=== PATIENT | female | born 1950 | race Hispanic/Latino ===

== ENCOUNTER 2017-01-03 11:07 | Inpatient (IN) | payer MEDICARE, MEDICAID ==
[2017-01-03 11:08] VITALS: BMI 23.4
[2017-01-03 11:50] LABS: BASO # 0.01 K/mm3 (0.0-2.0); BASO % 0.2 % (0.0-3.0); EOS # 0.1 (0.0-0.7); EOS % 1.3 % (1.5-5.0); GRAN # 3.81 (1.4-6.5); GRAN % 64.2 % (50.0-68.0); HEMATOCRIT 31.2 % (36.0-48.0); LYMPH # 1.5 (1.2-3.4); LYMPH % 24.9 % (22.0-35.0); MEAN CELL VOLUME 89.1 fl (80.0-105.0); MEAN CORPUSCULAR HEMOGLOBIN 29.4 pg (25.0-35.0); MEAN PLATELET VOLUME 8.8 fl (7.0-11.0); MONO # 0.6 (0.1-0.6); MONO % 9.4 % (1.0-6.0); RED CELL DISTRIBUTION WIDTH 13.5 % (11.5-14.5); WHITE BLOOD COUNT 5.9 10^3/ul (4.5-11.0)
[2017-01-03 12:01] LABS: ALB/GLOB RATIO 1.4 (1.1-1.8); ALKALINE PHOSPHATASE 80 U/L (38-126); ALT/SGPT 32 U/L (7-56); AST/SGOT 35 U/L (14-36); BILIRUBIN,TOTAL 0.5 mg/dL (0.2-1.3); BLOOD UREA NITROGEN 14 mg/dL (7-21); CALCIUM 9.5 mg/dL (8.4-10.5); CARBON DIOXIDE 25 mmol/L (21-33); CHLORIDE 103 mmol/L (98-107); GFR AFRICAN-AMERICAN > 60; GLUCOSE,RANDOM 95 mg/dL (70-110); POTASSIUM 4.2 mmol/L (3.6-5.0); SODIUM 139 mmol/L (132-148); TOTAL PROTEIN 7.4 g/dL (5.8-8.3)
--- NOTE | 2017-01-03 12:01 | ED PDOC ---
Arrival/HPI - General Chief Complaint: Trauma Time Seen by Provider: 01/03/17 11:18 Historian: Patient, EMS - History of Present Illness Narrative History of Present Illness (Text): The patient is a 66yo female, brought to the ED by EMS for evaluation of multiple episodes of falls. Pt reports she as been feeling generalized malaise for the past 3 weeks and has felt dizziness intermittently, which she describes as room spinning. The patient states she "cant keep balance" and has been "running into trees" and tripping. She states she has been evaluated for similar symptoms in the past and was given "dizzy pills". She additionally states she is unsure who called the ambulance for her. She offers no other complaints. According to EMS, the patient was at the outpatient [facility] in [place] saying she had some tests scheduled but she was not in their system. She was noticed to have unsteady gait and fall outside their facility so EMS brought her to [facility] saying she was with bizarre behavior. Symptom Onset: Gradual Symptom Course: Unchanged Past Medical History - Provider Review Nursing Documentation Reviewed: Yes - Travel History Have you recently traveled outside [place] w/in the past 3 mons?: No - Infectious Disease Hx of Infectious Diseases: None - Tetanus Immunization Tetanus Immunization: Unknown - Cardiac Hx Cardiac Disorders: No Hx Pacemaker: No - Pulmonary Hx Respiratory Disorders: No - Neurological Hx Neurological Disorder: No Hx Paralysis: No - HEENT Hx HEENT Disorder: No - Renal Hx Renal Disorder: No - Endocrine/Metabolic Hx Endocrine Disorders: No - Hematological/Oncological Hx Blood Transfusions: No - Integumentary Hx Dermatological Disorder: No Hx Basal Cell Carcinoma: No Hx Eczema: No Hx Melanoma: No Hx Psoriasis: No Hx Squamous Cell Carcinoma: No - Musculoskeletal/Rheumatological Hx Musculoskeletal Disorders: Yes (FX R HUMERUS) - Gastrointestinal Hx Gastrointestinal Disorders: No - Genitourinary/Gynecological Hx Genitourinary Disorders: No Hx Reproductive Disorders: No - Psychiatric Hx Psychophysiologic Disorder: Yes Hx Anxiety: Yes Hx Bipolar Disorder: No Hx Depression: Yes Hx Emotional Abuse: No Hx Hallucinations: No Hx Panic Disorder: Yes Hx Post Traumatic Stress Disorder: No Hx Psychosis: No Hx Physical Abuse: No Hx Schizophrenia: Yes Hx Sexual Abuse: No Hx Substance Use: No - Past Surgical History Past Surgical History: No Previous - Surgical History Hx Appendectomy: Yes - Anesthesia Hx Anesthesia Reactions: No Hx Malignant Hyperthermia: No - Suicidal Assessment Feels Threatened In Home Enviroment: No Family/Social History Family/Social History: No Known Family HX Smoking Status: Former Smoker Hx Alcohol Use: No Hx Substance Use: No Hx Substance Use Treatment: No Allergies/Home Meds Allergies/Adverse Reactions: Allergies No Known Allergies Allergy (Verified 01/03/17 11:18) Home Medications: Home Meds Medication Instructions Recorded Confirmed Unobtainable 01/03/17 01/03/17 Review of Systems - Review of Systems Constitutional: Other (general malaise). absent: Fevers Eyes: Normal ENT: Normal Respiratory: Normal Cardiovascular: Normal. absent: Chest Pain Gastrointestinal: Normal Neurological: Dizziness, Disequilibrium Physical Exam - Physical Exam Narrative Physical Exam (Text): Constitutional: No acute distress. Head: Normocephalic. Atraumatic. Eyes: PERRL. ENT: Moist mucous membranes. Neck: Supple. Cardiovascular: Regular rate. Chest: No tenderness. Respiratory: Clear to auscultation bilaterally. GI: Soft. Nontender. Nondistended. Back: No CVA tenderness. Musculoskeletal: No tenderness or swelling of extremities. FROM all extremities. Skin: No rash. Neurologic: Alert, no focal deficit. Vital Signs Reviewed: Yes Vital Signs Temp Pulse Resp BP Pulse Ox 01/03/17 17:18 77 16 144/91 H 99 01/03/17 11:26 97.7 F 84 17 113/70 96 Temperature: Afebrile Blood Pressure: Normal Pulse: Regular Respiratory Rate: Normal Finger Stick Blood Glucose: 145 Medical Decision Making ED Course and Treatment: -- CT head -- Labs 01/03/17 11:40 Pt to be placed in observation pending medical clearance. - Lab Interpretations Lab Results: 01/03/17 11:46 01/03/17 11:46 Lab Results 01/03/17 15:25: Urine Opiates Screen Negative, Urine Methadone Screen Negative, Ur Barbiturates Screen Negative, Ur Phencyclidine Scrn Negative, Ur Amphetamines Screen Negative, U Benzodiazepines Scrn Negative, U Oth Cocaine Metabols Negative, U Cannabinoids Screen Negative 01/03/17 14:30: Urine Color Yellow, Urine Appearance Clear, Urine pH 6.0, Ur Specific [place] 1.010, Urine Protein Negative, Urine Glucose (UA) Negative, Urine Ketones Negative, Urine Blood Trace-intact H, Urine Nitrate Negative, Urine Bilirubin Negative, Urine Urobilinogen 0.2, Ur Leukocyte Esterase Moderate H, Urine RBC 0 - 2, Urine WBC 10 - 15, Ur Epithelial Cells Many, Urine Bacteria Few, Urine HCG, Qual Negative 01/03/17 11:46: Alcohol, Quantitative < 10 01/03/17 11:46: Salicylates < 1 L, Acetaminophen < 10.0 L 01/03/17 11:46: Sodium 139, Potassium 4.2, Chloride 103, Carbon Dioxide 25, Anion Gap 15, BUN 14, Creatinine 1.0, Est GFR ( Amer) > 60, Est GFR (Non- Af Amer) 55, Random Glucose 95, Calcium 9.5, Total Bilirubin 0.5, AST 35, ALT 32 , Alkaline Phosphatase 80, Total Protein 7.4, Albumin 4.3, Globulin 3.1, Albumin /Globulin Ratio 1.4 01/03/17 11:46: WBC 5.9, RBC 3.50, Hgb 10.3 L, Hct 31.2 L, MCV 89.1, MCH 29.4, MCHC 33.0, RDW 13.5, Plt Count 281, MPV 8.8, Gran % 64.2, Lymph % (Auto) 24.9, [place] % (Auto) 9.4 H, Eos % (Auto) 1.3 L, Baso % (Auto) 0.2, Gran # 3.81, Lymph # 1.5, [place] # 0.6, Eos # 0.1, Baso # 0.01 01/03/17 11:17: POC Glucose (mg/dL) 145 H - RAD Interpretation Radiology Orders: 01/03/17 11:37 HEAD W/O CONTRAST [CT] Stat - EKG Interpretation EKG Interpretation (Text): NSR Rate: [address]/T wave changes Interpreted by ED Physician: Yes Type: 12 lead EKG ED OBSERVATION Date of observation admission: 01/03/17 Time of observation admission: 11:30 - Goals of Observation Goals of observation are:: Medical clearance - Progress Note Progress Note: 01/03/17 12:32 CT Head IMPRESSION: No acute intracranial abnormality. Moderate chronic microangiopathic changes and moderate age-related global parenchymal volume loss. Stable ventricular dilatation slightly out of proportion to sulcal prominence, normal pressure hydrocephalus is a consideration. Clinical correlation and follow-up is advised. 01/03/17 14:00 Patient resting, no acute distress. Accepted for admission by Dr. Patel for bipolar disorder. - Scribe Statement The provider has reviewed the documentation as recorded by the Bronson Headley Provider Attestation: All medical record entries made by the Bronson were at my direction and personally dictated by me. I have reviewed the chart and agree that the record accurately reflects my personal performance of the history, physical exam, medical decision making, and the department course for this patient. I have also personally directed, reviewed, and agree with the discharge instructions and disposition. Disposition/Present on Arrival - Present on Arrival Any Indicators Present on Arrival: No History of DVT/PE: No History of Uncontrolled Diabetes: No Urinary Catheter: No History of Decub. Ulcer: No History Surgical Site Infection Following: None - Disposition Have Diagnosis and Disposition been Completed?: Yes Diagnosis: Bipolar disorder Disposition: HOSPITALIZED Disposition Time: 11:40 Patient Plan: Admission Condition: FAIR
--- NOTE | 2017-01-03 12:31 | CT ---
PROCEDURE: CT HEAD WITHOUT CONTRAST. HISTORY: frequent falls COMPARISON: 03/05/2014. TECHNIQUE: Axial computed tomography images were obtained through the head/brain without intravenous contrast. Radiation dose: Total exam DLP = 1582.91 mGy-cm. This CT exam was performed using one or more of the following dose reduction techniques: Automated exposure control, adjustment of the mA and/or kV according to patient size, and/or use of iterative reconstruction technique. FINDINGS: HEMORRHAGE: No intracranial hemorrhage. BRAIN: There are moderate chronic microangiopathic changes. There is no mass, mass effect or abnormal extra-axial fluid collection. VENTRICLES: There is moderate age-related global parenchymal volume loss and proportionate enlargement of the cortical sulci. The ventricular dilatation is slightly out of proportion to the sulcal prominence. CALVARIUM: There is no calvarial fracture or extracranial soft tissue swelling. PARANASAL SINUSES: Predominantly clear. MASTOID AIR CELLS: Predominantly clear. OTHER FINDINGS: None. IMPRESSION: No acute intracranial abnormality. Moderate chronic microangiopathic changes and moderate age-related global parenchymal volume loss. Stable ventricular dilatation slightly out of proportion to sulcal prominence, normal pressure hydrocephalus is a consideration. Clinical correlation and follow-up is advised.
[2017-01-03 14:47] LABS: URINE BILIRUBIN NEGATIVE (NEGATIVE); URINE BLOOD TRACE-INTACT (NEGATIVE); URINE GLUCOSE (UA) NEGATIVE (NEGATIVE); URINE KETONE NEGATIVE (NEGATIVE); URINE LEUKOCYTE ESTERASE MODERATE Leu/uL (NEGATIVE); URINE PROTEIN NEGATIVE mg/dL (<30 mg/dL); URINE UROBILINOGEN 0.2 E.U./dL (<1 E.U./dL)
[2017-01-03 14:50] LABS: URINE APPEARANCE CLEAR (CLEAR); URINE COLOR YELLOW (YELLOW)
[2017-01-03 14:53] LABS: URINE BACTERIA FEW (NEG); URINE EPITHELIAL CELLS MANY /hpf (0-5); URINE RBC 0 - 2 /hpf (0-2)
--- NOTE | 2017-01-03 22:45 | CARD ---
APPROVED REPORT EKG Measurement Heart [id number] <Conclusion> Normal sinus rhythm Normal ECG
--- NOTE | 2017-01-04 01:06 | PCM.BM ---
<Woodrow Plata - Last Filed: 01/04/17 01:06> Treatment Plan Problems - Problems identified on initial assessmt falls Date Initiated: 01/03/17 Time Initiated: 21:45 Assessment reference: NA Status: Active Priority: 1 Treatment assets and liabiliti Patient Assests: good past tx response Patient Liabilities: poor support system, relationship conflicts - Milieu Protocol Maintain good personal hygiene: daily Encourage regular showers, daily Remind patient to perform daily oral care, daily Assist patient to perform ADL's Maintain personal safety: daily Educate patient to report safety concerns to staff, daily Monitor environment for contraband/sharps Medication safety: Monitor for expected outcome, potential side effects: daily, Assess barriers to learning: daily, Assess readiness for medication education: daily Family Contact Family involvement: No known Family/SO Family contact: Patient declines to allow family contact at present - Goals for Treatment Patient goals for treatment: I want to go home Discharge/Continuing Care - Education Needs Education Needs: Patient Medication, Patient Diagnosis/Disease Process, Patient Coping Skills, Patient Anger Management skills, Patient Placement options, Patient Community resources, Patient Activities of Daily Living, Patient Aftercare Safety Plan - Discharge Discharge Criteria: Free of Suicidal thoughts Discharge to:: Home <Gregoria Meyer Y - Last Filed: 01/05/17 13:23> Family Contact Family involvement: Famliy/SO not involved <Amanda Beck - Last Filed: 01/06/17 07:25> - Diagnosis (1) Schizoaffective disorder with good prognostic features Status: Acute Interventions: 01/06/17 07:26 Psychoeducation/psychotherapy Psychopharmacology/adjustment of medications as needed/ monitoring possible side effects Evaluate pt on daily basis Compliance with medications and follow up appointments Long acting medication if pt is noncompliant with pill form Suicide and homicide risk assessment and prevention, coping strategies, safety plan Relapse prevention Reduction of symptoms Improve functional status Possible assertive community treatment Cognitive behavioral therapy Family involvement Possible social skill training as outpatient (2) Polypharmacy Status: Acute Interventions: 01/06/17 07:26 med management decrease and wean off unnecessary meds medical consult f/u on labs education <Ammon Pascual - Last Filed: 01/06/17 10:11> Treatment assets and liabiliti Patient Assests: cooperative, motivated, resourceful, good interpersonal skills Patient Liabilities: physical pain, relationship conflicts, medical problems Discharge/Continuing Care - Education Needs Education Needs: Patient Medication, Patient Diagnosis/Disease Process, Patient Coping Skills, Patient Placement options, Patient Activities of Daily Living, Patient Uses of Medical Equipment, Patient Health Practices/Safety, Patient Personal Hygiene/Grooming, Patient Aftercare Safety Plan
[2017-01-04 08:14] LABS: CHOLESTEROL 216 mg/dL (130-200); GLUCOSE,FASTING 96 mg/dL (65-110)
[2017-01-04 08:26] LABS: FREE T4 0.75 ng/dL (0.78-2.19)
[2017-01-04 08:40] LABS: THYROID STIMULATING HORMONE 1.03 mIU/mL (0.46-4.68)
[2017-01-04] MEDS: buPROPion 150 mg/24 Hours XL Tab PO SCH (08:58)
--- NOTE | 2017-01-04 13:24 | CON ---
DATE: HISTORY OF PRESENT ILLNESS: This is a 66-year-old female, who had multiple falls at home and fell last week and also complained of dizziness with spinning of the room and poor balance, and did not hit her head, called to evaluate the patient. PAST MEDICAL HISTORY: Schizophrenia and appendectomy. ALLERGIES: NO KNOWN DRUG ALLERGIES. REVIEW OF SYSTEMS: A 10-point review of systems was negative. PHYSICAL EXAMINATION HEENT: Normocephalic, atraumatic. NECK: Supple. NEUROLOGIC: Awake, oriented to self and place. No aphasia. Cranial nerve II to XII were tested. Pupils reactive. Spontaneous movement of the extremities noted. Deep tendon reflexes 1+. Both plantars are downgoing. Sensory appears intact. The patient ambulating the hallway with a walker. DIAGNOSTIC DATA: A CAT scan of the head was done, which showed only ventricular dilatation, possibly normal pressure hydrocephalus. PLAN: Continue present management. We will follow up. Jon Villareal MD
--- NOTE | 2017-01-04 14:21 | PCM.PSYCH ---
Initial Psychiatric Evaluation - Initial Psychiatric Evaluation Type of Admission: Voluntary Legal Status: Capacity (patient has capacity to sign consent for treatment) Chief Complaint (in patient's own words): "I don't know, I was feeling fine" Patient's Reaction to Hospitalization: patient was admitted for disorganized thoughts and behavior, patient was verbalizing thoughts of killing herself in the emergency room, sign consent, willing to get treatment History of Present Illness and Precipitating Events: Shortly, patient is a 66yo female with reported h/o schizoaffective disorder, multiple psychiatric admissions (most recent was in 2013 under 's service), currently pt engages in outpatient services with Dr. Candelaria (local psychiatrist), reported being compliant with medications, was brought to the ED by EMS for evaluation of multiple episodes of falls and bizarre behavior. According to EMS, the patient was at the outpatient [facility] in [place] saying she had some tests scheduled but pt did not have any scheduled test in their system. At the [facility] ER pt verbalized suicidal ideation for the past few days, no plan, pt has h/o suicidal attempts by overdosing on medications, appeared to be confused and bizarre, pt lives alone, no primary support system/no family involvement. Due to the severity of patients symptoms, suicidal ideation/ disorganized behavior, despite the fact that pt was compliant with meds, still was not functioning, failed less intensive level of care, pt could not be maintained as outpatient setting, needs further evaluation and stabilization in acute psychiatric unit. Based on the h/o, pt's meds were recently changed, Seroquel was increased from 100 to 300mg XR, pt was on ativan 1mg po bid, Wellbutrin XL 300mg daily, Prozac 40mg po kam. confirmed by [employer] [phone]. Stresses: pt's brother two months ago, but pt said "I am happy he is ". patient was seen at the treatment team meeting, presented with acceptable personal hygiene, bright yellow hair, acceptable ADLS, patient ambulates with a walker. patient was started on one-to-one for safety, patient has history of multiple falls in the past. Patient seems to be a poor and unreliable historian , seems to have disorganized thoughts, disengaged, was saying that she was depressed two weeks ago but not now. pt denied being depressed, denied thoughts of harming self or others, at the same time has no clear explanation why she made a statement about suicidal ideation in ED. pt denied being anxious. Abuse:denied abuse Substance abuse: denied substance abuse, denied smoking Past psychiatric h/o: As per previous h/o (), pt has h/o paranoia, fear that people are there to get her. h/o being on [place], [place], Valium. long h/o falls even in 2013. Medical h/o: h/o falls Family h/o: denied Social h/o: lives alone Treatment goals: "to figure out why I am falling" Labs: 01/03/17 11:46 01/03/17 11:46 Lab Results 01/04/17 06:00: Free T4 0.75 L, TSH 3rd Generation 1.03 01/04/17 06:00: Fasting Glucose 96, Triglycerides 90, Cholesterol 216 H, LDL Cholesterol Direct 115, HDL Cholesterol 58 01/03/17 15:25: Urine Opiates Screen Negative, Urine Methadone Screen Negative, Ur Barbiturates Screen Negative, Ur Phencyclidine Scrn Negative, Ur Amphetamines Screen Negative, U Benzodiazepines Scrn Negative, U Oth Cocaine Metabols Negative, U Cannabinoids Screen Negative 01/03/17 14:30: Urine Color Yellow, Urine Appearance Clear, Urine pH 6.0, Ur Specific [place] 1.010, Urine Protein Negative, Urine Glucose (UA) Negative, Urine Ketones Negative, Urine Blood Trace-intact H, Urine Nitrate Negative, Urine Bilirubin Negative, Urine Urobilinogen 0.2, Ur Leukocyte Esterase Moderate H, Urine RBC 0 - 2, Urine WBC 10 - 15, Ur Epithelial Cells Many, Urine Bacteria Few, Urine HCG, Qual Negative 01/03/17 11:46: Alcohol, Quantitative < 10 01/03/17 11:46: Salicylates < 1 L, Acetaminophen < 10.0 L 01/03/17 11:46: Sodium 139, Potassium 4.2, Chloride 103, Carbon Dioxide 25, Anion Gap 15, BUN 14, Creatinine 1.0, Est GFR ( Amer) > 60, Est GFR (Non- Af Amer) 55, Random Glucose 95, Calcium 9.5, Total Bilirubin 0.5, AST 35, ALT 32 , Alkaline Phosphatase 80, Total Protein 7.4, Albumin 4.3, Globulin 3.1, Albumin /Globulin Ratio 1.4 01/03/17 11:46: WBC 5.9, RBC 3.50, Hgb 10.3 L, Hct 31.2 L, MCV 89.1, MCH 29.4, MCHC 33.0, RDW 13.5, Plt Count 281, MPV 8.8, Gran % 64.2, Lymph % (Auto) 24.9, [place] % (Auto) 9.4 H, Eos % (Auto) 1.3 L, Baso % (Auto) 0.2, Gran # 3.81, Lymph # 1.5, [place] # 0.6, Eos # 0.1, Baso # 0.01 01/03/17 11:17: POC Glucose (mg/dL) 145 H Vital Signs Temp Pulse Resp BP Pulse Ox 01/04/17 07:00 97.6 F 67 18 109/64 97 01/03/17 18:21 73 16 130/57 L 100 01/03/17 17:18 77 16 144/91 H 99 01/03/17 11:26 97.7 F 84 17 113/[address] of the head, enlarged ventricles. Review of Systems: see Medical consult, neurology consult appreciated impression possible normal pressure hydrocephalus. 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 Pt looks stated age bright yellow hair, acceptable personal hygiene, good ADLs, there is no psychomotor agitation/retardation, speech was:kind of slurred , eye contact: intermittent, mood described: "I was depressed two weeks ago", affect: inappropriate, smiling at times inappropriately, thought process:disorganized, thought content: denied SI/ HI, poor insight/judgment, impulses are well controlled. Impression: as per h/o schizoaffective disorder Plan: Milieu/structure/supportive therapy Medical consult neurology consult SW consultation for Med management Seroquel was increased from 100 to 300mg XR recently, will decrease the dose because pt was falling 50mg po bid for psychosis pt was on ativan 1mg po bid will resume Wellbutrin XL will be decreased to 150mg daily Prozac 40mg po kam will be continued, meds confirmed by [employer] [phone]. Family involvement Follow up on labs MVI, thiamine, folic acid Monitor vitals Ativan scheduled and PRN Will monitor closely Pt was educated about risk/benefits and alternatives of medications Current Medications: Active Medications Generic Name Dose Route Start Last Admin Trade Name Freq PRN Reason Stop Dose Admin Bupropion HCl 150 mg 01/04/17 08:00 Wellbutrin Xl PO DAILY GAUTAM Fluoxetine HCl 40 mg 01/04/17 08:00 Prozac PO DAILY GAUTAM Lorazepam 1 mg 01/03/17 19:23 Ativan IM Q8H PRN Agitation Protocol Lorazepam 1 mg 01/03/17 19:23 01/03/17 20:50 Ativan PO 1 mg BID PRN Administration Anxiety Protocol Quetiapine Fumarate 50 mg 01/03/17 19:23 01/03/17 20:51 Seroquel PO 50 mg BID PRN Administration Agitation Protocol Ziprasidone 10 mg 01/03/17 19:23 01/03/17 21:42 Geodon Inj IM 10 mg Q8H PRN Administration Agitation Protocol Past Psychiatric History - Past Psychiatric History Pertinent Medical Hx (Current Medical&Sleep Prob, Allergies): Allergies Allergy/AdvReac Type Severity Reaction Status Date / Time No Known Allergies Allergy Verified 01/03/17 22:07 Unobtainable 01/03/17
--- NOTE | 2017-01-04 20:41 | CP.PCM.CON ---
<STELLA CALDERÓN - Last Filed: 01/04/17 20:51> History of Present Illness - History of Present Illness History of Present Illness: Stella Calderón PGY1 Medicine Consult Note for Dr. Lin Ms. Prescott is a 66 year old female with past medical history of MDD, bipolar disorder and past falls due to unsteady gait who presented for a fall, dizziness and inability to keep her balance. In the ED, the patient was noted to have bizarre behavior, and thus was transferred to the psych unit for bipolar eval. CT of the head in the ED showed no acute intracranial abnormalities or hemorrhage, but was significant for ventricular dilation. Medicine was consulted for medical clearance. The patient states that she goes to [facility] for meds, and that her PMD is Dr Isaacs. The patient denies any medical history and offers no complaints of chest pain, shortness of breath, headaches, dizziness, fevers, nausea/ vomiting /diarrhea, and weakness. The patient states that she has a cane at home which she sometimes uses.The patient denies any tobacco, alcohol, or substance use. 10-point ROS reviewed and otherwise negative. Review of Systems - Review of Systems All systems: reviewed and no additional remarkable complaints except (as per HPI ) Past Patient History - Infectious Disease Hx of Infectious Diseases: None - Tetanus Immunizations Tetanus Immunization: Unknown - Past Social History Smoking Status: Former Smoker Alcohol: None Drugs: Denies - CARDIAC Hx Cardiac Disorders: No Hx Pacemaker: No - PULMONARY Hx Respiratory Disorders: No - NEUROLOGICAL Hx Neurological Disorder: No Hx Paralysis: No - HEENT Hx HEENT Problems: No - RENAL Hx Chronic Kidney Disease: No - ENDOCRINE/METABOLIC Hx Endocrine Disorders: No - HEMATOLOGICAL/ONCOLOGICAL Hx Blood Transfusions: No - INTEGUMENTARY Hx Dermatological Problems: No Hx Basil Cell: No Hx Eczema: No Hx Melanoma: No Hx Psoriasis: No Hx Squamous Cell: No - MUSCULOSKELETAL/RHEUMATOLOGICAL Hx Musculoskeletal Disorders: Yes (FX R HUMERUS) Hx Falls: Yes Hx Fractures: Yes Hx Unsteady Gait: Yes (cane at home) - GASTROINTESTINAL Hx Gastrointestinal Disorders: No - GENITOURINARY/GYNECOLOGICAL Hx Genitourinary Disorders: No Hx Reproductive Disorders: No - PSYCHIATRIC Hx Anxiety: Yes Hx Bipolar Disorder: Yes Hx Substance Use: No - SURGICAL HISTORY Hx Appendectomy: Yes - ANESTHESIA Hx Anesthesia Reactions: No Hx Malignant Hyperthermia: No Meds Allergies/Adverse Reactions: Allergies Allergy/AdvReac Type Severity Reaction Status Date / Time No Known Allergies Allergy Verified 01/03/17 22:07 - Medications Medications: Current Medications Bupropion HCl (Wellbutrin Xl) 150 mg PO DAILY [facility] Last Admin: 01/04/17 08:58 Dose: 150 mg Fluoxetine HCl (Prozac) 40 mg PO DAILY [facility] Last Admin: 01/04/17 08:58 Dose: 40 mg Lorazepam (Ativan) 1 mg IM Q8H PRN; Protocol PRN Reason: Agitation Lorazepam (Ativan) 1 mg PO BID PRN; Protocol PRN Reason: Anxiety Last Admin: 01/03/17 20:50 Dose: 1 mg Quetiapine Fumarate (Seroquel) 50 mg PO BID PRN; Protocol PRN Reason: Agitation Last Admin: 01/03/17 20:51 Dose: 50 mg Ziprasidone (Geodon Inj) 10 mg IM Q8H PRN; Protocol PRN Reason: Agitation Last Admin: 01/03/17 21:42 Dose: 10 mg Physical Exam - Constitutional Appears: No Acute Distress - Head Exam Head Exam: ATRAUMATIC, NORMAL INSPECTION - Eye Exam Eye Exam: EOMI, Normal appearance, PERRL - ENT Exam ENT Exam: Mucous Membranes Moist, Normal Exam - Neck Exam Neck exam: Positive for: Normal Inspection - Respiratory Exam Respiratory Exam: Clear to Auscultation Bilateral, NORMAL BREATHING PATTERN. absent: Wheezes - Cardiovascular Exam Cardiovascular Exam: RRR, +S1, +S2 - GI/Abdominal Exam GI & Abdominal Exam: Normal Bowel Sounds, Soft. absent: Distended, Tenderness - Extremities Exam Extremities exam: Positive for: normal inspection - Back Exam Back exam: NORMAL INSPECTION. absent: CVA tenderness (L), CVA tenderness (R) - Neurological Exam Neurological exam: Abnormal Gait (using RW ), Alert - Psychiatric Exam Psychiatric exam: Normal Affect, Normal Mood - Skin Skin Exam: Normal Color, Warm Results - Vital Signs Recent Vital Signs: Last Vital Signs Temp 97.6 F 01/04/17 07:00 Pulse 67 01/04/17 07:00 Resp 18 01/04/17 07:00 BP 109/64 01/04/17 07:00 Pulse Ox 97 01/04/17 07:00 - Labs Result Diagrams: 01/03/17 11:46 01/03/17 11:46 Labs: Laboratory Results - last 24 hr 01/04/17 01/04/17 01/04/17 06:00 06:00 06:00 Fasting Glucose 96 Triglycerides 90 Cholesterol 216 H LDL Cholesterol Direct 115 HDL Cholesterol 58 Free T4 0.75 L TSH 3rd Generation 1.03 RPR Nonreactive Assessment & Plan - Assessment and Plan (Free Text) Assessment: 66 year old female with past medical history of MDD, bipolar disorder and past falls due to unsteady gait who presented for a fall, dizziness and inability to keep her balance. In the ED, the patient was noted to have bizarre behavior, and thus was transferred to the psych unit for bipolar eval. CT of the head in the ED showed no acute intracranial abnormalities or hemorrhage, but was significant for ventricular dilation. Medicine was consulted for medical clearance. Pt is using RW to ambulate. Of note, pt was worked up for hx of [place] [address] Villareal and EEG showed no seizure activity. The underlying gait issue seems to be chronic and likely 2/2 mild peripheral neuropathy. At that time, Dr. Villareal rec PT for gait imbalance and EMG/NCS for eval of neuropathy. 1. Unsteady gait w/ hx of falls - CT head negative for hemorrhage but shows dilated ventricles - r/o NPH - neurology consulted - rec PT and use of assisting devices 2. ? UTI - mod leukocyte esterase on UA - clean catch ucx showed no growth - ucx ordered for f/u 3. HLD - print decorator referral 4. Hx bipolar disorder and MDD - management as per psych team Will sign off patient for now. If needed, please re-consult Thank you Stella Calderón PGY1 Dr. Lin, Attending Physician - Date & Time Date: 01/04/17 Time: 12:00 <Gage Lin - Last Filed: 01/05/17 12:33> Meds - Medications Medications: Current Medications Bupropion HCl (Wellbutrin Xl) 150 mg PO DAILY [facility] Last Admin: 01/04/17 08:58 Dose: 150 mg Fluoxetine HCl (Prozac) 40 mg PO DAILY [facility] Last Admin: 01/04/17 08:58 Dose: 40 mg Lorazepam (Ativan) 1 mg IM Q8H PRN; Protocol PRN Reason: Agitation Lorazepam (Ativan) 1 mg PO BID PRN; Protocol PRN Reason: Anxiety Last Admin: 01/03/17 20:50 Dose: 1 mg Quetiapine Fumarate (Seroquel) 50 mg PO BID PRN; Protocol PRN Reason: Agitation Last Admin: 01/03/17 20:51 Dose: 50 mg Ziprasidone (Geodon Inj) 10 mg IM Q8H PRN; Protocol PRN Reason: Agitation Last Admin: 01/03/17 21:42 Dose: 10 mg Results - Vital Signs Recent Vital Signs: Last Vital Signs Temp 97.6 F 01/04/17 23:02 Pulse 67 01/04/17 23:02 Resp 18 01/04/17 23:02 BP 109/64 01/04/17 23:02 Pulse Ox 97 01/04/17 23:02 - Labs Result Diagrams: 01/03/17 11:46 01/03/17 11:46 Labs: Laboratory Results - last 24 hr 01/04/17 01/04/17 01/04/17 06:00 06:00 06:00 Fasting Glucose 96 Triglycerides 90 Cholesterol 216 H LDL Cholesterol Direct 115 HDL Cholesterol 58 Free T4 0.75 L TSH 3rd Generation 1.03 RPR Nonreactive Attending/Attestation - Attestation I have personally seen and examined this patient.: Yes I have fully participated in the care of the patient.: Yes I have reviewed all pertinent clinical information: Yes Notes (Text): 01/05/17 07:46 Attending note; Patient seen and examined with resident in psychiatric floor. Patient is alert, awake. Able to give minimal history. Patient is a 66 year old female with past medical history of MDD, bipolar disorder and past falls due to unsteady gait who presented for a fall, dizziness and inability to keep her balance. Patient has been ambulating with walker. Currently denies any complaints. CT head showed dilated ventricles .Neurology evaluation requested. Patient has previous workup in the past by Dr. Villareal. Needs close outpatient follow-up with neurology. Elevated cholesterol; dietary evaluation requested. Positive UA; urine culture is negative. Patient is afebrile and nontoxic denies any urinary symptoms. Mild anemia. Needs follow-up as outpatient. Patient is medically stable. Please follow-up with neurology recommendation. Reconsult as needed. follow-up with PMD of choice upon discharge. Thank you for the courtesy of this consultation. 01/05/17 12:33
[2017-01-05] MEDS: buPROPion 150 mg/24 Hours XL Tab PO SCH (08:27)
--- NOTE | 2017-01-05 10:50 | PCM.PYCHPN ---
Psychiatric Progress Note - Psychiatric Progress Note Patient seen today, length of contact: 30min Patient Chief Complaint: "I feel better" Medical Problems: multiple falls, r/o NPH (normal pressure hydrocephalus) Diagnostic Results: 01/03/17 11:46 01/03/17 11:46 Lab Results 01/04/17 06:00: RPR Nonreactive 01/04/17 06:00: Free T4 0.75 L, TSH 3rd Generation 1.03 01/04/17 06:00: Fasting Glucose 96, Triglycerides 90, Cholesterol 216 H, LDL Cholesterol Direct 115, HDL Cholesterol 58 01/03/17 15:25: Urine Opiates Screen Negative, Urine Methadone Screen Negative, Ur Barbiturates Screen Negative, Ur Phencyclidine Scrn Negative, Ur Amphetamines Screen Negative, U Benzodiazepines Scrn Negative, U Oth Cocaine Metabols Negative, U Cannabinoids Screen Negative 01/03/17 14:30: Urine Color Yellow, Urine Appearance Clear, Urine pH 6.0, Ur Specific [place] [place] 1.010, Urine Protein Negative, Urine Glucose (UA) Negative, Urine Ketones Negative, Urine Blood Trace-intact H, Urine Nitrate Negative, Urine Bilirubin Negative, Urine Urobilinogen 0.2, Ur Leukocyte Esterase Moderate H, Urine RBC 0 - 2, Urine WBC 10 - 15, Ur Epithelial Cells Many, Urine Bacteria Few, Urine HCG, Qual Negative 01/03/17 11:46: Alcohol, Quantitative < 10 01/03/17 11:46: Salicylates < 1 L, Acetaminophen < 10.0 L 01/03/17 11:46: Sodium 139, Potassium 4.2, Chloride 103, Carbon Dioxide 25, Anion Gap 15, BUN 14, Creatinine 1.0, Est GFR ( Amer) > 60, Est GFR (Non- Af Amer) 55, Random Glucose 95, Calcium 9.5, Total Bilirubin 0.5, AST 35, ALT 32 , Alkaline Phosphatase 80, Total Protein 7.4, Albumin 4.3, Globulin 3.1, Albumin /Globulin Ratio 1.4 01/03/17 11:46: WBC 5.9, RBC 3.50, Hgb 10.3 L, Hct 31.2 L, MCV 89.1, MCH 29.4, MCHC 33.0, RDW 13.5, Plt Count 281, MPV 8.8, Gran % 64.2, Lymph % (Auto) 24.9, Cloud % (Auto) 9.4 H, Eos % (Auto) 1.3 L, Baso % (Auto) 0.2, Gran # 3.81, Lymph # 1.5, Cloud # 0.6, Eos # 0.1, Baso # 0.01 01/03/17 11:17: POC Glucose (mg/dL) 145 H Vital Signs Temp Pulse Resp BP Pulse Ox 01/05/17 08:12 97.2 F L 76 17 124/71 01/04/17 23:02 97.6 F 67 18 109/64 97 01/04/17 07:00 97.6 F 67 18 109/64 97 01/03/17 18:21 73 16 130/57 L 100 01/03/17 17:18 77 16 144/91 H 99 01/03/17 11:26 97.7 F 84 17 113/70 96 DSM 5 Symptoms Update: Shortly, patient is a 66yo female with reported h/o schizoaffective disorder, multiple psychiatric admissions (most recent was in 2013 under 's service), currently pt engages in outpatient services with Dr. Candelaria (local psychiatrist), reported being compliant with medications, was brought to the ED by EMS for evaluation of multiple episodes of falls and bizarre behavior. According to EMS, the patient was at the outpatient [facility] in [place] saying she had some tests scheduled but pt did not have any scheduled test in their system. [place] [facility] [place] verbalized suicidal ideation for the past few days, no plan, pt has h/o suicidal attempts by overdosing on medications, appeared to be confused and bizarre, pt lives alone, no primary support system/no family involvement. As per RN report pt was compliant with medications, there were no behavioral problems, no agitation or aggression. patient was seen at the treatment team meeting, presented with improved personal hygiene, was calm, cooperative, thought process more coherent. pt is currently on 1:1 for falls precaution, was seen by PT, was recommended to have PT as outpatient. pt ambulated with more steady gait, will d/c 1:1. pt tolerate adjustment of the medications well, this report writer decrease dose of seroquel and wellbutrin. pt was in agreement with tx plan, said "I feel better". pt was seen by Neurology team for falls (possible normal pressure hydrocephalus) , they will f/u on pt. CT of the head, enlarged ventricles, pt was educated about result. MSE: Pt deemed to be better, thought process is more coherent, well related to this report writer. Pt looks stated age bright yellow hair, acceptable personal hygiene, good ADLs, there is no psychomotor agitation/retardation, speech was more clear and coherent, good eye contact, mood described: "I am doing better", affect: was reactive and mood congruent, thought process: more coherent and goal directed, thought content: denied SI/ HI, insight and judgment improving, impulses are well controlled. Impression: as per h/o schizoaffective disorder r/o polypharmacy Plan: Milieu/structure/supportive therapy Medical consult appreciated neurology consult appreciated consultation for Med management Seroquel currently 50mg po bid for psychosis (h/o paranoia) ativan 1mg po bid as needed Wellbutrin XL will be d/c today Prozac 40mg po kam for depression and anxiety meds confirmed by [facility] [phone]. Family involvement pt does not have family Follow up on labs Will monitor closely Pt was educated about risk/benefits and alternatives of medications Medication Change: Yes (wellbutrin d/c) Medical Record Reviewed: Yes Mental Status Examination - Homicidal Ideation Homicidal Ideation: No Goal/Treatment Plan - Goal/Treatment Plan Need for Continued Stay: Remain at risks for inpatient hospitalization, Discharge may exacerbated symptoms, Severe functional impairment Estimated Date of D/C: 01/07/17 (will monitor closely)
--- NOTE | 2017-01-05 15:45 | CP.PCM.PN ---
<Jim Metz - Last Filed: 01/05/17 17:29> Subjective - Date & Time of Evaluation Date of Evaluation: 01/05/17 Time of Evaluation: 09:30 - Subjective Subjective: Neurology Progress Note for Dr. Villareal Service Patient seen and examined in the Psych Unit. Appears more coherent and organized in thought as compared to state reported on arrival. Gait appears improved, ambulating without assistance but somewhat unsteady gait, 2 witnessed episodes of unsteadiness. No acute complaints at time of exam. Denies chest pain, shortness of breath, or focal weakness/numbness. Admits was given a cane at home, but wasn't using. As per Psych unit staff, possible discharge tomorrow. Objective - Vital Signs/Intake and Output Vital Signs (last 24 hours): Temp Pulse Resp BP Pulse Ox 97.2 F L 76 17 124/71 97 01/05/17 13:04 01/05/17 08:12 01/05/17 08:12 01/05/17 08:12 01/04/17 23:02 - Medications Medications: Current Medications Acetaminophen (Tylenol 325mg Tab) 650 mg PO Q6H PRN PRN Reason: Pain, moderate (4-7) Last Admin: 01/05/17 13:04 Dose: 650 mg Fluoxetine HCl (Prozac) 40 mg PO DAILY [facility] Last Admin: 01/05/17 08:27 Dose: 40 mg Lorazepam (Ativan) 1 mg IM Q8H PRN; Protocol PRN Reason: Agitation Lorazepam (Ativan) 1 mg PO BID PRN; Protocol PRN Reason: Anxiety Last Admin: 01/03/17 20:50 Dose: 1 mg Quetiapine Fumarate (Seroquel) 50 mg PO [facility] PRN Reason: Protocol Ziprasidone (Geodon Inj) 10 mg IM Q8H PRN; Protocol PRN Reason: Agitation Last Admin: 01/03/17 21:42 Dose: 10 mg - Constitutional Appears: Non-toxic, No Acute Distress - Head Exam Head Exam: ATRAUMATIC, NORMAL INSPECTION, NORMOCEPHALIC - Eye Exam Eye Exam: EOMI, Normal appearance. absent: Conjunctival injection, Scleral icterus Pupil Exam: absent: Irregular, Unequal - ENT Exam ENT Exam: Mucous Membranes Moist - Neck Exam Neck Exam: absent: Lymphadenopathy, Thyromegaly - Respiratory Exam Respiratory Exam: Clear to Ausculation Bilateral, NORMAL BREATHING PATTERN. absent: Accessory Muscle Use, Chest Wall Tenderness, Decreased Breath Sounds, Rales, Rhonchi, Wheezes - Cardiovascular Exam Cardiovascular Exam: REGULAR RHYTHM, RRR, +S1, +S2. absent: Bradycardia, Tachycardia, Irregular Rhythm, JVD, +S4 - GI/Abdominal Exam GI & Abdominal Exam: Soft, Normal Bowel Sounds. absent: Distended, Firm, Rigid , Tenderness - Extremities Exam Extremities Exam: Full ROM, Normal Inspection. absent: Joint Swelling, Pedal Edema, Tenderness - Neurological Exam Neurological Exam: Alert, Awake, Oriented x3. absent: Normal Gait (narrow gait ; slight intermittent unsteadiness, predominantly with turning, most notable when making right and rapid turns) Additional comments: Awake and alert, following all commands appropriately sensation and motor grossly intact bilaterally 4/5 UE and LE motor strength, 4/5 glue jointer feeder strength bilaterally - Psychiatric Exam Psychiatric exam: Normal Affect, Normal Mood Additional comments: Not grossly agitated or anxious, appears to display coherent/logical thought processes - Skin Skin Exam: Dry, Intact, Normal Color, Warm Assessment and Plan - Assessment and Plan (Free Text) Assessment: This is a 66 yo F with PMH of MDD, Bipolar, Schizophrenia, and multiple prior falls who presented with increased falls, dizziness, and worsened balance at home. She was admitted to Psych due to presentation with bizarre behavior. Her balance, falls, and behavioral changes may be due to NPH, as her head CT was suggestive of dilated ventricles. At this time, patient appears stable and improving. If her condition worsens, would consider a Neurosurgical eval. Continue PT therapy for balance. Plan: 1) PT for impaired gait, may require sub-acute rehab after discharge; encouraged to use cane at home (already has it, hasn't been using it). 2) If worsening condition or signs of progressively worsening ventricle dilation , would consult Neurosurgery 3) Medical management as per Psych and Medical team Patient reviewed and discussed with attending, Dr. Villareal. <Bala Villareal - Last Filed: 01/06/17 10:25> Objective - Vital Signs/Intake and Output Vital Signs (last 24 hours): Temp Pulse Resp BP Pulse Ox 98.1 F 77 20 119/83 99 01/06/17 06:54 01/06/17 06:54 01/06/17 06:54 01/06/17 06:54 01/06/17 06:54 - Medications Medications: Current Medications Acetaminophen (Tylenol 325mg Tab) 650 mg PO Q6H PRN PRN Reason: Pain, moderate (4-7) Last Admin: 01/05/17 13:04 Dose: 650 mg Fluoxetine HCl (Prozac) 40 mg PO DAILY [facility] Last Admin: 01/06/17 08:45 Dose: 40 mg Lorazepam (Ativan) 1 mg IM Q8H PRN; Protocol PRN Reason: Agitation Lorazepam (Ativan) 1 mg PO BID PRN; Protocol PRN Reason: Anxiety Last Admin: 01/03/17 20:50 Dose: 1 mg Quetiapine Fumarate (Seroquel) 50 mg PO [facility] PRN Reason: Protocol Last Admin: 01/05/17 21:24 Dose: 50 mg Ziprasidone (Geodon Inj) 10 mg IM Q8H PRN; Protocol PRN Reason: Agitation Last Admin: 01/03/17 21:42 Dose: 10 mg
[2017-01-06 06:55] VITALS: BP 119/83; PULSE 77; RESP 20; TEMP 98.1; O2SAT 99
--- NOTE | 2017-01-06 14:02 | PCM.PYCHDC ---
Mental Status Examination - Mental Status Examination Orientation: Person, Place, Situation, Time Memory: Intact Mood: Neutral Affect: Constricted (but reactive, mood congruent) Speech: Appropriate Attention: WNL (much improved) Concentration: WNL (much improved) Association: WNL Fund of Knowledge: WNL Formal Thought Process: No Impairment (much improvemetn) Description of patient's judgement and insight: Pt has improved insight into mental and medical illness, pt was compliant with medications and unit rules and regulations, pt was going to groups, was calm, cooperative, socially appropriate, no behavioral incidents, no agitation, no aggression. Psychotic Thoughts and Behaviors: Pt denied v/a/t hallucinations, denied paranoid ideations, pt does not appear to be psychotic, and thought process is goal directed. Suicidal Ideation: No Current Homicidal Ideation?: No Plan: pt adamantly denied thoughts of harming self or others denied intent or plan. Discharge Summary - Discharge Note Reason for Hospitalization: patient was admitted for disorganized thoughts and behavior Psychiatric History (includes Medical, Family, Personal Hx): h/o schizoaffective disorder Laboratory Data: 01/03/17 11:46 01/03/17 11:46 Lab Results 01/04/17 06:00: RPR Nonreactive 01/04/17 06:00: Free T4 0.75 L, TSH 3rd Generation 1.03 01/04/17 06:00: Fasting Glucose 96, Triglycerides 90, Cholesterol 216 H, LDL Cholesterol Direct 115, HDL Cholesterol 58 01/03/17 15:25: Urine Opiates Screen Negative, Urine Methadone Screen Negative, Ur Barbiturates Screen Negative, Ur Phencyclidine Scrn Negative, Ur Amphetamines Screen Negative, U Benzodiazepines Scrn Negative, U Oth Cocaine Metabols Negative, U Cannabinoids Screen Negative 01/03/17 14:30: Urine Color Yellow, Urine Appearance Clear, Urine pH 6.0, Ur Specific [place] 1.010, Urine Protein Negative, Urine Glucose (UA) Negative, Urine Ketones Negative, Urine Blood Trace-intact H, Urine Nitrate Negative, Urine Bilirubin Negative, Urine Urobilinogen 0.2, Ur Leukocyte Esterase Moderate H, Urine RBC 0 - 2, Urine WBC 10 - 15, Ur Epithelial Cells Many, Urine Bacteria Few, Urine HCG, Qual Negative 01/03/17 11:46: Alcohol, Quantitative < 10 01/03/17 11:46: Salicylates < 1 L, Acetaminophen < 10.0 L 01/03/17 11:46: Sodium 139, Potassium 4.2, Chloride 103, Carbon Dioxide 25, Anion Gap 15, BUN 14, Creatinine 1.0, Est GFR ( Amer) > 60, Est GFR (Non- Af Amer) 55, Random Glucose 95, Calcium 9.5, Total Bilirubin 0.5, AST 35, ALT 32 , Alkaline Phosphatase 80, Total Protein 7.4, Albumin 4.3, Globulin 3.1, Albumin /Globulin Ratio 1.4 01/03/17 11:46: WBC 5.9, RBC 3.50, Hgb 10.3 L, Hct 31.2 L, MCV 89.1, MCH 29.4, MCHC 33.0, RDW 13.5, Plt Count 281, MPV 8.8, Gran % 64.2, Lymph % (Auto) 24.9, Rooks % (Auto) 9.4 H, Eos % (Auto) 1.3 L, Baso % (Auto) 0.2, Gran # 3.81, Lymph # 1.5, Rooks # 0.6, Eos # 0.1, Baso # 0.01 01/03/17 11:17: POC Glucose (mg/dL) 145 H Vital Signs Temp Pulse Resp BP Pulse Ox 01/06/17 06:54 98.1 F 77 20 119/83 99 01/05/17 16:00 69 123/83 01/05/17 14:04 97.5 F L 01/05/17 13:04 97.2 F L 01/05/17 08:12 97.2 F L 76 17 124/71 01/04/17 23:02 97.6 F 67 18 109/64 97 01/04/17 07:00 97.6 F 67 18 109/64 97 01/03/17 18:21 73 16 130/57 L 100 01/03/17 17:18 77 16 144/91 H 99 01/03/17 11:26 97.7 F 84 17 113/70 96 Consultations:: List each consultation separately and include: 1. Reason for request. 2. Findings. 3. Follow-up Consultations: medical consult appreciated neurology consult appreciated PT consult appreciated Summary of Hospital Course include:: 1. Description of specific treatment plan utilized for patients during their course of treatmen. 2. Summarize the time- course for resolution of acute symptoms and/or regressed behaviors. 3. Describe issues identified and worked on during hospitalization. 4. Describe medication utilized. 5. Describe medical problems identified and treated. 6. Reassessment of suicide risk Summary of Hospital Course: Shortly, patient is a 66yo female with reported h/o schizoaffective disorder, multiple psychiatric admissions (most recent was in 2013 under 's service), currently pt engages in outpatient services with Dr. Candelaria (local psychiatrist), reported being compliant with medications, was brought to the ED by EMS for evaluation of multiple episodes of falls and bizarre behavior. According to EMS, the patient was at the outpatient [facility] in [place] saying she had some tests scheduled but pt did not have any scheduled test in their system. At the [facility] ER pt verbalized suicidal ideation for the past few days, no plan, pt has h/o suicidal attempts by overdosing on medications, appeared to be confused and bizarre, pt lives alone, no primary support system/no family involvement. Due to the severity of patients symptoms , suicidal ideation/ disorganized behavior, despite the fact that pt was compliant with meds, still was not functioning, failed less intensive level of care, pt could not be maintained as outpatient setting, needs further evaluation and stabilization in acute psychiatric unit. Based on the h/o, pt's meds were recently changed, Seroquel was increased from 100 to 300mg XR, pt was on ativan 1mg po bid, Wellbutrin XL 300mg daily, Prozac 40mg po kam. confirmed by [employer] [phone]. confirmed by PES worker Stresses: pt's brother two months ago, but pt said "I am happy he is ". initially patient was seen at the treatment team meeting, presented with acceptable personal hygiene, bright yellow hair, acceptable ADLS, patient ambulates with a walker. patient was started on one-to-one for safety, patient has history of multiple falls in the past. Patient seems to be a poor and unreliable historian, seems to have disorganized thoughts, disengaged, was saying that she was depressed two weeks ago but not now. pt denied being depressed, denied thoughts of harming self or others, at the same time has no clear explanation why she made a statement about suicidal ideation in ED. pt denied being anxious. Abuse:denied abuse Substance abuse: denied substance abuse, denied smoking Past psychiatric h/o: As per previous h/o (), pt has h/o paranoia, fear that people are there to get her. h/o being on [place], [place], Valium. long h/o falls even in 2013. Medical h/o: h/o falls Family h/o: denied Social h/o: lives alone Treatment goals: "to figure out why I am falling" Labs: 01/03/17 11:46 01/03/17 11:46 Lab Results 01/04/17 06:00: Free T4 0.75 L, TSH 3rd Generation 1.03 01/04/17 06:00: Fasting Glucose 96, Triglycerides 90, Cholesterol 216 H, LDL Cholesterol Direct 115, HDL Cholesterol 58 01/03/17 15:25: Urine Opiates Screen Negative, Urine Methadone Screen Negative, Ur Barbiturates Screen Negative, Ur Phencyclidine Scrn Negative, Ur Amphetamines Screen Negative, U Benzodiazepines Scrn Negative, U Oth Cocaine Metabols Negative, U Cannabinoids Screen Negative 01/03/17 14:30: Urine Color Yellow, Urine Appearance Clear, Urine pH 6.0, Ur Specific [place] 1.010, Urine Protein Negative, Urine Glucose (UA) Negative, Urine Ketones Negative, Urine Blood Trace-intact H, Urine Nitrate Negative, Urine Bilirubin Negative, Urine Urobilinogen 0.2, Ur Leukocyte Esterase Moderate H, Urine RBC 0 - 2, Urine WBC 10 - 15, Ur Epithelial Cells Many, Urine Bacteria Few, Urine HCG, Qual Negative 01/03/17 11:46: Alcohol, Quantitative < 10 01/03/17 11:46: Salicylates < 1 L, Acetaminophen < 10.0 L 01/03/17 11:46: Sodium 139, Potassium 4.2, Chloride 103, Carbon Dioxide 25, Anion Gap 15, BUN 14, Creatinine 1.0, Est GFR ( Amer) > 60, Est GFR (Non- Af Amer) 55, Random Glucose 95, Calcium 9.5, Total Bilirubin 0.5, AST 35, ALT 32 , Alkaline Phosphatase 80, Total Protein 7.4, Albumin 4.3, Globulin 3.1, Albumin /Globulin Ratio 1.4 01/03/17 11:46: WBC 5.9, RBC 3.50, Hgb 10.3 L, Hct 31.2 L, MCV 89.1, MCH 29.4, MCHC 33.0, RDW 13.5, Plt Count 281, MPV 8.8, Gran % 64.2, Lymph % (Auto) 24.9, Rooks % (Auto) 9.4 H, Eos % (Auto) 1.3 L, Baso % (Auto) 0.2, Gran # 3.81, Lymph # 1.5, Rooks # 0.6, Eos # 0.1, Baso # 0.01 01/03/17 11:17: POC Glucose (mg/dL) 145 H Vital Signs Temp Pulse Resp BP Pulse Ox 01/04/17 07:00 97.6 F 67 18 109/64 97 01/03/17 18:21 73 16 130/57 L 100 01/03/17 17:18 77 16 144/91 H 99 01/03/17 11:26 97.7 F 84 17 113/[address] of the head, enlarged ventricles. Review of Systems: see Medical consult, neurology consult appreciated impression possible normal pressure hydrocephalus. pt needed meds to be adjusted this writer producer decrease the dose of Seroquel to 50mg po bid ativan was PRN, pt did not need it, eventually was d/c wellbutrin was weaned off Prozac 40mg po kam was continued pt tolerated meds well, no side effects observed or reported, AIMS 0, no EPS. pt improved significantly, no falls, gait was more stable, did not even need a walker pt was seen today at tx team meeting, pt requested d/c today pt said that she feels "much better, I feel great, look I am not falling". pt said that she has cats at home and she wants to be d/c this writer producer called pt's pharmacy pt said she will be filling meds at [facility] this writer producer called to the pharmacy let them know about changes with pt's medications Over the course of this hospitalization pt was attending groups, pt also had medication management, had therapeutic milieu. Overall pt improved significantly, pt's affect became brighter, pt is more organized, not psychotic, gait improved, pt ambulates without a cane or a walker. pt requested to be d/c and pt deemed to be ready for discharge. At the time of the discharge pt denied been depressed, denied thoughts of harming self or others, denied psychotic symptoms, and pt does not appeared to be psychotic, denied been anxious, pt is not in imminent danger to self or others, will be following up at 's office, information about follow up appointment, time and address provided to the pt, it is patient responsibility to follow up with outpatient clinic, PMD as well as specialists (see SW note for more detailed information). In case pt will need to obtain results of studies pending at discharge pt was provided with contact information of Psychiatric Inpatient unit [phone] as well as Medical Record Department [phone]. Nicotine patch was offered pt was provided with prescriptions for all of medications (please see medication reconciliation form) Pt was educated about safety plan in case of worsening of symptoms or in case of suicidal or homicidal ideation call 911 or go to the nearest ER, also was educated to take meds as prescribed and stay away from drugs, pt verbalized understanding. - Diagnosis (1) Schizoaffective disorder with good prognostic features Current Visit: Yes Status: Chronic Priority: Medium (2) Polypharmacy Current Visit: Yes Status: Acute Priority: High - Final Diagnosis (DSM 5) Condition upon Discharge: FAIR Disposition: HOME/ ROUTINE Follow-up Treatment Plan: At the time of the discharge pt denied been depressed, denied thoughts of harming self or others, denied psychotic symptoms, and pt does not appeared to be psychotic, denied been anxious, pt is not in imminent danger to self or others, will be following up at 's office, information about follow up appointment, time and address provided to the pt, it is patient responsibility to follow up with outpatient clinic, PMD as well as specialists (see SW note for more detailed information). In case pt will need to obtain results of studies pending at discharge pt was provided with contact information of Psychiatric Inpatient unit [phone] as well as Medical Record Department [phone]. Nicotine patch was offered pt was provided with prescriptions for all of medications (please see medication reconciliation form) Pt was educated about safety plan in case of worsening of symptoms or in case of suicidal or homicidal ideation call 911 or go to the nearest ER, also was educated to take meds as prescribed and stay away from drugs, pt verbalized understanding. Prescriptions/Medication Reconciliation: Fluoxetine HCl [Prozac] 40 mg PO DAILY #14 capsule Quetiapine Fumarate [Seroquel] 50 mg PO AMHS #30 tab - Smoking Cessation Smoking Cessation Medication prescribed: No Reason for not providing: denied smoking - Antipsychotic Medications Pt discharged on 2 or more routine antipsychotic medications: No
== END 2017-01-06 14:00 | disposition home or self-care (01) | DRG 885 ==
LOC: ED 11:07 → EROBSV 11:40 → OBSVTOIN 16:11 → ERH 16:11 → PSYC 18:38
PROVIDERS: ADMIT Psychiatry & Neurology Psychiatry; ATTEND Psychiatry & Neurology Psychiatry
DX: F25.9 Schizoaffective disorder, unspecified (principal); G91.2 (Idiopathic) normal pressure hydrocephalus; N39.0 Urinary tract infection, site not specified; E78.5 Hyperlipidemia, unspecified; D64.9 Anemia, unspecified; Z91.81 History of falling; R26.81 Unsteadiness on feet; Z87.891 Personal history of nicotine dependence

== ENCOUNTER 2017-12-11 15:48 | Inpatient (IN) | payer MEDICARE, MEDICAID ==
[2017-12-11 15:48] VITALS: BMI 23.4
--- NOTE | 2017-12-11 16:18 | ED PDOC ---
Arrival/HPI - General Chief Complaint: Psychiatric Evaluation Time Seen by Provider: 12/11/17 15:59 Historian: Patient - History of Present Illness Narrative History of Present Illness (Text): 12/11/17 16:16 A 67 year old female, whose past medical history includes bipolar disorder and schizophrenia, presents to the emergency department with a complaint of feeing depressed and suicidal. Patient states that she has been feeling more depressed and experiencing the suicidal thoughts for over 1 week. The patient denies fevers, chills, headache, dizziness, sore throat, cough, chest pain, shortness of breath, dyspnea on exertion, abdominal pain, nausea, vomiting, diarrhea, neck /back pain, urinary/bowel changes or any other somatic complaint. Time/Duration: Other (1 week) Symptom Onset: Sudden Symptom Course: Unchanged Activities at Onset: Rest, Light Context: Home Past Medical History - Provider Review Nursing Documentation Reviewed: Yes - Infectious Disease Hx of Infectious Diseases: None - Tetanus Immunization Tetanus Immunization: Unknown - Reproductive Menopause: Yes - Cardiac Hx Cardiac Disorders: Yes - Pulmonary Hx Respiratory Disorders: No - Neurological Hx Neurological Disorder: No Hx Paralysis: No - HEENT Hx HEENT Disorder: No - Renal Hx Renal Disorder: No - Endocrine/Metabolic Hx Endocrine Disorders: No - Hematological/Oncological Hx Blood Transfusions: No - Integumentary Hx Dermatological Disorder: No Hx Basal Cell Carcinoma: No Hx Eczema: No Hx Melanoma: No Hx Psoriasis: No Hx Squamous Cell Carcinoma: No - Musculoskeletal/Rheumatological Hx Musculoskeletal Disorders: Yes (FX R HUMERUS) Hx Falls: Yes Hx Fractures: Yes Hx Unsteady Gait: Yes (cane at home) - Gastrointestinal Hx Gastrointestinal Disorders: No - Genitourinary/Gynecological Hx Genitourinary Disorders: No Hx Reproductive Disorders: No - Psychiatric Hx Psychophysiologic Disorder: No Hx Substance Use: No - Past Surgical History Past Surgical History: No Previous - Surgical History Hx Appendectomy: Yes - Anesthesia Hx Anesthesia Reactions: No Hx Malignant Hyperthermia: No - Suicidal Assessment Feels Threatened In Home Enviroment: No Family/Social History - Physician Review Nursing Documentation Reviewed: Yes Family/Social History: No Known Family HX Smoking Status: Current Some Days Smoker Hx Alcohol Use: No Hx Substance Use: No Hx Substance Use Treatment: No Allergies/Home Meds Allergies/Adverse Reactions: Allergies No Known Allergies Allergy (Verified 12/11/17 16:05) Home Medications: Home Meds Medication Instructions Recorded Confirmed Quetiapine Fumarate [Seroquel] 300 mg PO HS 12/11/17 12/11/17 buPROPion XL [Wellbutrin XL] 300 mg PO DAILY 12/11/17 12/11/17 clonazePAM [clonAZEPAM] 0.5 mg PO BID 12/11/17 12/11/17 Review of Systems - Physician Review All systems were reviewed & negative as marked: Yes - Review of Systems Constitutional: absent: Fevers Respiratory: absent: SOB, Cough Cardiovascular: absent: Chest Pain, GOODRICH Gastrointestinal: absent: Abdominal Pain, Stool Changes, Diarrhea, Nausea, Vomiting Genitourinary Female: absent: Urine Output Changes Musculoskeletal: absent: Back Pain, Neck Pain Neurological: absent: Headache, Dizziness Psychiatric: Depression, Suicidal Ideation Physical Exam Appearance: Positive for: Well-Appearing, Non-Toxic, Comfortable Pain Distress: None Mental Status: Positive for: Alert and Oriented X 3 - Systems Exam Head: Present: Atraumatic, Normocephalic Pupils: Present: PERRL Extroacular Muscles: Present: EOMI Conjunctiva: Present: Normal Mouth: Present: Moist Mucous Membranes Neck: Present: Normal Range of Motion Respiratory/Chest: Present: Clear to Auscultation, Good Air Exchange. No: Respiratory Distress, Accessory Muscle Use Cardiovascular: Present: Regular Rate and Rhythm, Normal S1, S2. No: Murmurs Abdomen: No: Tenderness, Distention, Peritoneal Signs Back: Present: Normal Inspection Upper Extremity: Present: Normal Inspection. No: Cyanosis, Edema Lower Extremity: Present: Normal Inspection. No: Edema Neurological: Present: GCS=15, CN II-XII Intact, Speech Normal Skin: Present: Warm, Dry, Normal Color. No: Rashes Psychiatric: Present: Alert, Oriented x 3, Normal Insight, Normal Concentration. No: Normal Affect (Flat Affect) Medical Decision Making ED Course and Treatment: 12/11/17 16:19 Impression: A 67 year old female presents to the emergency department with complaint of feeling depressed and suicidal. Plan: --EKG -- Chest X-ray -- Labs -- Urinalysis -- Reassess and disposition Prior Visits: Notes and results from previous visits were reviewed. Progress Notes: 12/11/17 17:53: Patient was evaluated by PES. Accepted to Dr. Beck's service. Pending medical clearance. 12/11/17 19:36 patient is medically stable for psych eval, admit, transfer if needed - Lab Interpretations Lab Results: 12/11/17 16:16 12/11/17 16:16 Lab Results 12/11/17 16:16: Alcohol, Quantitative < 10 12/11/17 16:16: Salicylates < 1 L, Acetaminophen < 10.0 L 12/11/17 16:16: Sodium 142, Potassium 4.6, Chloride 105, Carbon Dioxide 27, Anion Gap 15, BUN 19, Creatinine 0.8, Est GFR ( Amer) > 60, Est GFR (Non- Af Amer) > 60, Random Glucose 110, Calcium 9.2, Total Bilirubin 0.2, AST 30, ALT 25, Alkaline Phosphatase 80, Total Protein 7.2, Albumin 3.9, Globulin 3.3, Albumin/Globulin Ratio 1.2 12/11/17 16:16: Urine Color Yellow, Urine Appearance Clear, Urine pH 6.0, Ur Specific [place] 1.020, Urine Protein Negative, Urine Glucose (UA) Negative, Urine Ketones Negative, Urine Blood Negative, Urine Nitrate Negative, Urine Bilirubin Negative, Urine Urobilinogen 0.2, Ur Leukocyte Esterase Negative 12/11/17 16:16: WBC 5.5, RBC 3.78, Hgb 10.8 L, Hct 33.3 L, MCV 88.1, MCH 28.6, MCHC 32.4, RDW 13.6, Plt Count 244, MPV 10.1, Gran % 58.7, Lymph % (Auto) 32.2, [place] % (Auto) 7.1 H, Eos % (Auto) 1.8, Baso % (Auto) 0.2, Gran # 3.24, Lymph # ( Auto) 1.8, [place] # (Auto) 0.4, Eos # (Auto) 0.1, Baso # (Auto) 0.01 I have reviewed the lab results: Yes - RAD Interpretation Narrative RAD Interpretations (Text): PROCEDURE: CHEST RADIOGRAPH, 1 VIEW Dictator : Kb Contreras MD Report Date : 12/11/2017 17:33:28 IMPRESSION: No active disease. Radiology Orders: 12/11/17 16:13 CHEST ONE VIEW [RAD] Stat - EKG Interpretation EKG Interpretation (Text): 12/11/17 16:10 EKG: Ordered, reviewed, and independently interpreted the EKG. Rate : 78 BPM Rhythm : NSR Interpretation : Normal QRS. Normal axis. No acute ST- T wave abnormalities. Interpreted by ED Physician: Yes Type: 12 lead EKG - Scribe Statement The provider has reviewed the documentation as recorded by the Scribe Lucinda Mora Provider Scribe Attestation: All medical record entries made by the Scribe were at my direction and personally dictated by me. I have reviewed the chart and agree that the record accurately reflects my personal performance of the history, physical exam, medical decision making, and the department course for this patient. I have also personally directed, reviewed, and agree with the discharge instructions and disposition. Disposition/Present on Arrival - Present on Arrival Any Indicators Present on Arrival: No History of DVT/PE: No History of Uncontrolled Diabetes: No Urinary Catheter: No History of Decub. Ulcer: No History Surgical Site Infection Following: None - Disposition Have Diagnosis and Disposition been Completed?: Yes Diagnosis: Suicidal thoughts Disposition: HOSPITALIZED Disposition Time: 19:36 Patient Plan: Admission Condition: STABLE Forms: [employer] ([place]i)
[2017-12-11 17:31] LABS: ACETAMINOPHEN < 10.0 ug/ml (10.0-20.0); ALB/GLOB RATIO 1.2 (1.1-1.8); ALBUMIN 3.9 g/dL (3.0-4.8); ALT/SGPT 25 U/L (7-56); AST/SGOT 30 U/L (14-36); BLOOD UREA NITROGEN 19 mg/dL (7-21); CALCIUM 9.2 mg/dL (8.4-10.5); GFR NON-AFRICAN AMERICAN > 60; SALICYLATE < 1 mg/dL (2.0-20.0)
--- NOTE | 2017-12-11 17:35 | RAD ---
Date of service: 12/11/2017 PROCEDURE: CHEST RADIOGRAPH, 1 VIEW HISTORY: medical screening COMPARISON: Chest radiograph dated 03/05/2014. FINDINGS: LUNGS: Clear. PLEURA: No pneumothorax or pleural fluid seen. CARDIOVASCULAR: Atherosclerotic aortic calcifications. Cardiomediastinal silhouette stably prominent. OSSEOUS STRUCTURES: Unchanged. VISUALIZED UPPER ABDOMEN: Normal. OTHER FINDINGS: None. IMPRESSION: No active disease.
[2017-12-11 17:42] LABS: BASO # 0.01 K/mm3 (0.0-2.0); BASO % 0.2 % (0.0-3.0); EOS # 0.1 (0.0-0.7); EOS % 1.8 % (1.5-5.0); GRAN # 3.24 (1.4-6.5); GRAN % 58.7 % (50.0-68.0); HEMOGLOBIN 10.8 g/dL (12.0-16.0); LYMPH # 1.8 (1.2-3.4); LYMPH % 32.2 % (22.0-35.0); MEAN CELL VOLUME 88.1 fl (80.0-105.0); MEAN CORPUSCULAR HEMOGLOBIN 28.6 pg (25.0-35.0); MEAN CORPUSCULAR HGB CONC 32.4 g/dl (31.0-37.0); MEAN PLATELET VOLUME 10.1 fl (7.0-11.0); MONO # 0.4 (0.1-0.6); MONO % 7.1 % (1.0-6.0); RBC 3.78 10^6/uL (3.5-6.1); RED CELL DISTRIBUTION WIDTH 13.6 % (11.5-14.5); WHITE BLOOD COUNT 5.5 10^3/ul (4.5-11.0)
[2017-12-11 19:29] LABS: URINE BILIRUBIN NEGATIVE (NEGATIVE); URINE BLOOD NEGATIVE (NEGATIVE); URINE GLUCOSE (UA) NEGATIVE (NEGATIVE); URINE LEUKOCYTE ESTERASE NEGATIVE Leu/uL (NEGATIVE); URINE PROTEIN NEGATIVE mg/dL (<30 mg/dL); URINE UROBILINOGEN 0.2 E.U./dL (<1 E.U./dL)
[2017-12-11 19:34] LABS: URINE APPEARANCE CLEAR (CLEAR); URINE COLOR YELLOW (YELLOW)
[2017-12-11 19:41] VITALS: O2SAT 98
[2017-12-11 19:44] LABS: BENZODIAZEPINES, UR NEGATIVE (NEGATIVE)
[2017-12-11 19:47] LABS: BARBITURATES, UR NEGATIVE (NEGATIVE); OPIATES, UR NEGATIVE (NEGATIVE); PHENCYCLIDINE, UR NEGATIVE (NEGATIVE)
[2017-12-11] MEDS ORDERED: Magnesium Hydroxide Susp 30 ml UD PO PRN (22:44)
[2017-12-11] MEDS ORDERED: Alum-Mag Hydrox-Simethicone Susp (30 mL) PO PRN (22:44)
--- NOTE | 2017-12-12 00:42 | PCM.BM ---
<John Trejo - Last Filed: 12/12/17 00:40> Treatment Plan Problems - Problems identified on initial assessmt Hopelessness/Helplessness Date Initiated: 12/12/17 Time Initiated: 00:40 Assessment reference: NA Status: Active Feelings of Worthlessness Date Initiated: 12/12/17 Time Initiated: 00:40 Assessment reference: NA Status: Active Ineffective Coping Date Initiated: 12/12/17 Time Initiated: 00:40 Assessment reference: NA Status: Active Treatment assets and liabiliti Patient Assests: adapts well, cooperative, motivated, self-reliant, ADL independent, negotiates basic needs, cognitively intact, good interpersonal skills Patient Liabilities: live alone, financial problems, poor support system - Milieu Protocol Maintain good personal hygiene: daily Encourage regular showers, daily Remind patient to perform daily oral care, daily Assist patient to perform ADL's Conduct patient checks and document Observation sheet: Q15 minutes Maintain personal safety: every shift Educate patient to report safety concerns to staff, every shift Monitor environment for contraband/sharps Medication safety: Monitor for expected outcome, potential side effects: every shift, Assess barriers to learning: every shift, Assess readiness for medication education: every shift Discharge/Continuing Care - Education Needs Education Needs: Patient Medication, Patient Diagnosis/Disease Process, Patient Coping Skills, Patient Community resources, Patient Activities of Daily Living, Patient Health Practices/Safety, Patient Aftercare Safety Plan - Discharge Discharge Criteria: Free of Suicidal thoughts, Normal sleep pattern, Ability to care for self, Reduction of target symptoms <Amanda Beck - Last Filed: 12/12/17 14:34> - Diagnosis (1) Bipolar 1 disorder Status: Acute Interventions: 12/12/17 14:34 Psychoeducation Psychopharmacology/adjustment of medications as needed/ monitoring possible side effects Monitor blood level of mood stabilizers Evaluate pt on daily basis Compliance with medications and follow up appointments Suicide and homicide risk assessment and prevention, coping strategies, safety plan Relapse prevention Reduction of symptoms Improve functional status Family involvement As outpatient: cognitive behavioral therapy <Riri Deutsch - Last Filed: 12/12/17 16:35>
[2017-12-12 07:04] VITALS: TEMP 97.6
[2017-12-12 07:33] LABS: GLUCOSE,FASTING 94 mg/dL (65-110); HDL CHOLESTEROL 43 mg/dL (29-60)
[2017-12-12 07:44] LABS: LDL CHOLESTEROL 95 mg/dL (0-129)
--- NOTE | 2017-12-12 07:46 | CARD ---
APPROVED REPORT Date of service: 12/11/2017 EKG Measurement Heart [id number] <Conclusion> Normal sinus rhythm RVCD Normal ECG No change
--- NOTE | 2017-12-12 15:01 | PCM.PSYCH ---
Initial Psychiatric Evaluation - Initial Psychiatric Evaluation Type of Admission: Voluntary Legal Status: Capacity (ppatient has capacity to sign consent for treatment) Chief Complaint (in patient's own words): "I stopped taking medications about 2 weeks ago, I decided to stop it because medication was not working for me, I became more depressed, hopeless, I started to have thoughts of killing myself, with a plan to jump off the balcony, my cat saved me by walking after me" Patient's Reaction to Hospitalization: patient was admitted to the psychiatric inpatient unit for evaluation of worsening depression, mind racing, possible suicidal ideation with a plan to jump off the balcony. History of Present Illness and Precipitating Events: Shortly, patient is a 67yo female with reported h/o schizoaffective disorder, multiple psychiatric admissions (most recent was in [address] [facility]), currently pt engages in outpatient services with Dr. Candelaria ( local psychiatrist), but was noncompliant with meds and follow up appts, pt brought herself to the hospital for evaluation of worsening of depression suicidal ideation with a plan to jump off a balcony. pt requires further evaluation and stabilization, observation, meds resumption and titration. patient was seen and examined today at the treatment team meeting, fair personal hygiene, good ADLs,looks younger than chronological age, very short haircut, bleached hair. Overall patient well related to this process description writer, seems to be a fair historian. Patient reported that she stopped taking medication about 2 weeks ago, as a result she became more depressed, hopeless, helpless, patient reported that she was not able to fall asleep and stay asleep, patient also reported that she had suicidal thoughts with a plan to jump off the balcony, patient reported that last time she walks into the bulk and he was 2 weeks ago. Patient denied hearing voices, denied seeing things, but patient has history of hearing voices it was "a while ago". Patient denied any paranoia as well. Patient reported no signs of PTSD, denied history of being abused, patient denied using drugs, denied smoking, denied drinking alcohol. Patient reported no physical complaints, patient reported being healthy. Medication released was confirmed by medical student patient filled the medications in [facility] pharmacy: Seroquel extended release 300 mg at the nighttime patient fill it in December 02 Fluoxetine 40 mg daily the same day of feeling Wellbutrin 300 mg daily field in September 29 Klonopin 0.5 mg twice a day field in August 31 prescriber is . past psychiatric history: This process description writer is fair familiar with this patient from the previous admission to the psychiatric inpatient unit, patient also has multiple hospitalizations "more than 10", patient was saying psychiatrist at [facility], as per patient "I was admitted in [facility], [place], [place]". last admission pt presented to be bizarre and frequent falls. Pt lives alone, no primary support system/no family involvement. Past psychiatric h/o: As per previous h/o (), pt has h/o paranoia, fear that people are there to get her. h/o being on Latuda, [place], Valium. long h/o falls even in 2013. Medical h/o: h/o falls Family h/o: denied Social h/o: lives alone 12/11/17 16:16 12/11/17 16:16 Lab Results 12/12/17 07:05: Fasting Glucose 94, Triglycerides 131, Cholesterol 177, LDL Cholesterol Direct 95, HDL Cholesterol 43 12/12/17 07:05: TSH 3rd Generation 2.72 12/11/17 16:16: Alcohol, Quantitative < 10 12/11/17 16:16: Salicylates < 1 L, Acetaminophen < 10.0 L 12/11/17 16:16: Urine Opiates Screen Negative, Urine Methadone Screen Negative, Ur Barbiturates Screen Negative, Ur Phencyclidine Scrn Negative, Ur Amphetamines Screen Negative, U Benzodiazepines Scrn Negative, U Oth Cocaine Metabols Negative, U Cannabinoids Screen Negative 12/11/17 16:16: Sodium 142, Potassium 4.6, Chloride 105, Carbon Dioxide 27, Anion Gap 15, BUN 19, Creatinine 0.8, Est GFR ( Amer) > 60, Est GFR (Non- Af Amer) > 60, Random Glucose 110, Calcium 9.2, Total Bilirubin 0.2, AST 30, ALT 25, Alkaline Phosphatase 80, Total Protein 7.2, Albumin 3.9, Globulin 3.3, Albumin/Globulin Ratio 1.2 12/11/17 16:16: Urine Color Yellow, Urine Appearance Clear, Urine pH 6.0, Ur Specific [place] 1.020, Urine Protein Negative, Urine Glucose (UA) Negative, Urine Ketones Negative, Urine Blood Negative, Urine Nitrate Negative, Urine Bilirubin Negative, Urine Urobilinogen 0.2, Ur Leukocyte Esterase Negative 12/11/17 16:16: WBC 5.5, RBC 3.78, Hgb 10.8 L, Hct 33.3 L, MCV 88.1, MCH 28.6, MCHC 32.4, RDW 13.6, Plt Count 244, MPV 10.1, Gran % 58.7, Lymph % (Auto) 32.2, [place] % (Auto) 7.1 H, Eos % (Auto) 1.8, Baso % (Auto) 0.2, Gran # 3.24, Lymph # ( Auto) 1.8, [place] # (Auto) 0.4, Eos # (Auto) 0.1, Baso # (Auto) 0.01 Vital Signs Temp Pulse Resp BP Pulse Ox 12/12/17 07:00 97.6 F 68 20 101/68 12/11/17 21:00 97.8 F 75 16 106/69 98 12/11/17 20:50 98.2 F 68 17 116/69 98 12/11/17 18:20 98.7 F 66 18 119/69 98 12/11/17 16:00 98.2 F 76 18 140/77 98 patient made a request "I do want to be on medication what they tried before, nothing worked". Current Medications: Active Medications Generic Name Dose Route Start Last Admin Trade Name Freq PRN Reason Stop Dose Admin Acetaminophen 650 mg 12/11/17 22:44 Tylenol 325mg Tab PO Q4 PRN Pain, moderate (4-7) Al Hydrox/Mg Hydrox/Simethicone 30 ml 12/11/17 22:44 Maalox Plus 30 Ml PO DAILY PRN Upset Stomach Escitalopram Oxalate 5 mg 12/12/17 10:00 12/12/17 10:47 Lexapro PO 5 mg DAILY GAUTAM Administration Lorazepam 1 mg 12/11/17 22:40 12/12/17 01:58 Ativan PO 1 mg Q6 PRN Administration Anxiety Protocol Lorazepam 2 mg 12/12/17 10:05 Ativan IM Q6 PRN severe agitation and aggressio Protocol Lorazepam 2 mg 12/12/17 10:13 Ativan PO Q6H PRN anxiety/agitation Protocol Magnesium Hydroxide 30 ml 12/11/17 22:44 Milk Of Magnesia PO DAILY PRN Constipation Zaleplon 5 mg 12/12/17 09:58 Sonata PO HS PRN Insomnia Ziprasidone 20 mg 12/12/17 10:00 12/12/17 10:46 Geodon Cap PO 20 mg BID GAUTAM Administration Protocol Ziprasidone 20 mg 12/12/17 10:05 Geodon Inj IM Q6H PRN severe agitaiton/psychosis Protocol Ziprasidone 20 mg 12/12/17 10:05 Geodon Cap PO Q6H PRN psychosis/agitation Protocol Past Psychiatric History - Past Psychiatric History Previous Treatment History: Inpatient Prior Professional Help: she HPI Prior Psychiatric Treatment: she HPI At [facility]: she HPI Duration: she HPI Nature of Treatment: she HPI Explanation of prior treatment: she HPI History of Abuse: she HPI History of ETOH/Drug Use: she HPI History of Family Illness: she HPI Pertinent Medical Hx (Current Medical&Sleep Prob, Allergies): Allergies Allergy/AdvReac Type Severity Reaction Status Date / Time No Known Allergies Allergy Verified 12/11/17 22:15 Fluoxetine HCl [Prozac] 40 mg PO DAILY #14 capsule 01/06/17 Quetiapine Fumarate [Seroquel] 300 mg PO HS 12/11/17 buPROPion XL [Wellbutrin XL] 300 mg PO DAILY 12/11/17 clonazePAM [clonAZEPAM] 0.5 mg PO BID 12/11/17 patient was noncompliant with the medications Review of Systems - Review of Systems Systems not reviewed;Unavailable: Altered Mental Status - EENT Eyes: As Per HPI Ears: As Per HPI Nose/Mouth/Throat: As Per HPI - Breasts Breasts: As Per HPI - Cardiovascular Cardiovascular: As Per HPI - Respiratory Respiratory: As Per HPI - Gastrointestinal Gastrointestinal: As Per HPI - Genitourinary Genitourinary: As Per HPI - Reproductive: Female Reproductive:Female: As Per HPI - Menstruation Menstruation: As Per HPI - Musculoskeletal Musculoskeletal: As Par HPI - Integumentary Integumentary: As Per HPI - Neurological Neurological: As Per HPI - Psychiatric Psychiatric: As Per HPI - Endocrine Endocrine: As Per HPI - Hematologic/Lymphatic Hematologic: As Per HPI Mental Status Examination - Personal Presentation Personal Presentation: Looks stated age - Affect Affect: Flat - Motor Activity Motor Activity: Calm - Reliability in Providing Information Reliability in Providing Information: Fair - Speech Speech: Organized - Mood Mood: Depressed - Formal Thought Process Formal Thought Process: No Impairment, Other (history of hallucinations) - Obsessions/Compulsions Obsessions: None Compulsions: None - Cognitive Functions Orientation: Person, Place, Situation, Time Sensorium: Alert Attention/Concentration: Easily distracted Abstract Thinking: Imogene Estimate of Intelligence: Average Judgement: Intact, as evidence by: Insight regarding need for hospitalization - Risk Risk: Suicidal, Self-mutilation, Diminished functioning - Strength & Assets Inventory Strength & Assets Inventory: Cooperative, Other (good physical health,no drugs involved) - Limitations Limitations: Other (cchronic mental illness, lives alone) DSM 5 DX - DSM 5 DSM 5 Diagnosis: as per history bipolar disorder with psychosis versus schizoaffective disorder bipolar type - Recommended/Plan of Treatment Treatment Recommendations and Plan of Treatment: Milieu/structure/supportive therapy Medical consult appreciated, see medical team note for more detailed info SW consultation for discharge plan and social issues Med management Geodon 20 mg twice a day for mood stabilization Lexapro 5 mg daily for depression klonopin 0.5mg po bid for anxiety Sonata for insomnia Family involvement Follow up on labs Will monitor closely Pt was educated about risk/benefits and alternatives of medications, coping strategies (safety plan, suicide prevention), relapse prevention, importance of follow up with psychiatrist and therapist, stay away from drugs/alcohol/smoking Projected ELOS: 7days Prognosis: fair Discharge Plan and Discharge Criteria: Pt will be not depressed or manic, will be more hopeful, will be not psychotic or anxious, will be not having thoughts of harming self or others, will be tolerating medications well, will not have major side effects, will be able to function, will not pose threat to self or others. - Smoking Cessation Smoking Cessation Initiated: No Reason for not providing: patient denied smoking
[2017-12-13 07:27] VITALS: BP 93/58; PULSE 61; RESP 18
--- NOTE | 2017-12-13 11:52 | PCM.PYCHDC ---
Mental Status Examination - Mental Status Examination Orientation: Person, Place, Situation Memory: Intact Mood: Neutral (Patient denied having any symptoms of depression at discharge, confirmed during tx team meeting) Speech: Appropriate Attention: WNL Concentration: WNL Association: WNL Fund of Knowledge: WNL Formal Thought Process: No Impairment Description of patient's judgement and insight: Improved and fair I/J Psychotic Thoughts and Behaviors: Denied AVH or paranoia, Delusions were not elicited Suicidal Ideation: No Current Homicidal Ideation?: No Discharge Summary - Discharge Note Reason for Hospitalization: Shortly, patient is a 67yo female with reported h/o schizoaffective disorder, multiple psychiatric admissions (most recent was in 2017 here in [facility]), currently pt engages in outpatient services with Dr. Candelaria ( local psychiatrist), but was noncompliant with meds and follow up appts, pt brought herself to the hospital for evaluation of worsening of depression suicidal ideation with a plan to jump off a balcony. Psychiatric History (includes Medical, Family, Personal Hx): SEE HPI Laboratory Data: Abnormal Lab Results 12/12/17 07:05 RPR Nonreactive Laboratory Tests 12/11/17 12/11/17 12/11/17 16:16 16:16 16:16 WBC 5.5 RBC 3.78 Hgb 10.8 L Hct 33.3 L MCV 88.1 MCH 28.6 MCHC 32.4 RDW 13.6 Plt Count 244 MPV 10.1 Gran % 58.7 Lymph % (Auto) 32.2 [place] % (Auto) 7.1 H Eos % (Auto) 1.8 Baso % (Auto) 0.2 Gran # 3.24 Lymph # (Auto) 1.8 [place] # (Auto) 0.4 Eos # (Auto) 0.1 Baso # (Auto) 0.01 Sodium 142 Potassium 4.6 Chloride 105 Carbon Dioxide 27 Anion Gap 15 BUN 19 Creatinine 0.8 Est GFR ( Amer) > 60 Est GFR (Non-Af Amer) > 60 Random Glucose 110 Fasting Glucose Calcium 9.2 Total Bilirubin 0.2 AST 30 ALT 25 Alkaline Phosphatase 80 Total Protein 7.2 Albumin 3.9 Globulin 3.3 Albumin/Globulin Ratio 1.2 Triglycerides Cholesterol LDL Cholesterol Direct HDL Cholesterol TSH 3rd Generation Urine Color Yellow Urine Appearance Clear Urine pH 6.0 Ur Specific [place] 1.020 Urine Protein Negative Urine Glucose (UA) Negative Urine Ketones Negative Urine Blood Negative Urine Nitrate Negative Urine Bilirubin Negative Urine Urobilinogen 0.2 Ur Leukocyte Esterase Negative Salicylates Urine Opiates Screen Urine Methadone Screen Acetaminophen Ur Barbiturates Screen Ur Phencyclidine Scrn Ur Amphetamines Screen U Benzodiazepines Scrn U Oth Cocaine Metabols U Cannabinoids Screen Alcohol, Quantitative RPR 12/11/17 12/11/17 12/11/17 16:16 16:16 16:16 WBC RBC Hgb Hct MCV MCH MCHC RDW Plt Count MPV Gran % Lymph % (Auto) [place] % (Auto) Eos % (Auto) Baso % (Auto) Gran # Lymph # (Auto) [place] # (Auto) Eos # (Auto) Baso # (Auto) Sodium Potassium Chloride Carbon Dioxide Anion Gap BUN Creatinine Est GFR ( Amer) Est GFR (Non-Af Amer) Random Glucose Fasting Glucose Calcium Total Bilirubin AST ALT Alkaline Phosphatase Total Protein Albumin Globulin Albumin/Globulin Ratio Triglycerides Cholesterol LDL Cholesterol Direct HDL Cholesterol TSH 3rd Generation Urine Color Urine Appearance Urine pH Ur Specific [place] Urine Protein Urine Glucose (UA) Urine Ketones Urine Blood Urine Nitrate Urine Bilirubin Urine Urobilinogen Ur Leukocyte Esterase Salicylates < 1 L Urine Opiates Screen Negative Urine Methadone Screen Negative Acetaminophen < 10.0 L Ur Barbiturates Screen Negative Ur Phencyclidine Scrn Negative Ur Amphetamines Screen Negative U Benzodiazepines Scrn Negative U Oth Cocaine Metabols Negative U Cannabinoids Screen Negative Alcohol, Quantitative < 10 RPR 12/12/17 12/12/17 12/12/17 07:05 07:05 07:05 WBC RBC Hgb Hct MCV MCH MCHC RDW Plt Count MPV Gran % Lymph % (Auto) [place] % (Auto) Eos % (Auto) Baso % (Auto) Gran # Lymph # (Auto) [place] # (Auto) Eos # (Auto) Baso # (Auto) Sodium Potassium Chloride Carbon Dioxide Anion Gap BUN Creatinine Est GFR ( Amer) Est GFR (Non-Af Amer) Random Glucose Fasting Glucose 94 Calcium Total Bilirubin AST ALT Alkaline Phosphatase Total Protein Albumin Globulin Albumin/Globulin Ratio Triglycerides 131 Cholesterol 177 LDL Cholesterol Direct 95 HDL Cholesterol 43 TSH 3rd Generation 2.72 Urine Color Urine Appearance Urine pH Ur Specific [place] Urine Protein Urine Glucose (UA) Urine Ketones Urine Blood Urine Nitrate Urine Bilirubin Urine Urobilinogen Ur Leukocyte Esterase Salicylates Urine Opiates Screen Urine Methadone Screen Acetaminophen Ur Barbiturates Screen Ur Phencyclidine Scrn Ur Amphetamines Screen U Benzodiazepines Scrn U Oth Cocaine Metabols U Cannabinoids Screen Alcohol, Quantitative RPR Nonreactive Consultations:: List each consultation separately and include: 1. Reason for request. 2. Findings. 3. Follow-up Consultations: none Summary of Hospital Course include:: 1. Description of specific treatment plan utilized for patients during their course of treatmen. 2. Summarize the time- course for resolution of acute symptoms and/or regressed behaviors. 3. Describe issues identified and worked on during hospitalization. 4. Describe medication utilized. 5. Describe medical problems identified and treated. 6. Reassessment of suicide risk Summary of Hospital Course: PER DR. KELLER'S HPI ON 12/12/17, THE DAY PRIOR TO DISCHARGE. Pt signed a 48 hours notice at 16:30 Shortly, patient is a 67yo female with reported h/o schizoaffective disorder, multiple psychiatric admissions (most recent was in 2017 here in [facility]), currently pt engages in outpatient services with Dr. Candelaria ( local psychiatrist), but was noncompliant with meds and follow up appts, pt brought herself to the hospital for evaluation of worsening of depression suicidal ideation with a plan to jump off a balcony. pt requires further evaluation and stabilization, observation, meds resumption and titration. patient was seen and examined today at the treatment team meeting, fair personal hygiene, good ADLs,looks younger than chronological age, very short haircut, bleached hair. Overall patient well related to this business writer, seems to be a fair historian. Patient reported that she stopped taking medication about 2 weeks ago, as a result she became more depressed, hopeless, helpless, patient reported that she was not able to fall asleep and stay asleep, patient also reported that she had suicidal thoughts with a plan to jump off the balcony, patient reported that last time she walks into the bulk and he was 2 weeks ago. Patient denied hearing voices, denied seeing things, but patient has history of hearing voices it was "a while ago". Patient denied any paranoia as well. Patient reported no signs of PTSD, denied history of being abused, patient denied using drugs, denied smoking, denied drinking alcohol. Patient reported no physical complaints, patient reported being healthy. Medication released was confirmed by medical student patient filled the medications in [facility] pharmacy: Seroquel extended release 300 mg at the nighttime patient fill it in December 02 Fluoxetine 40 mg daily the same day of feeling Wellbutrin 300 mg daily field in September 29 Klonopin 0.5 mg twice a day field in August 31 prescriber is . past psychiatric history: This business writer is fair familiar with this patient from the previous admission to the psychiatric inpatient unit, patient also has multiple hospitalizations "more than 10", patient was saying psychiatrist at [facility], as per patient "I was admitted in [facility], [place], [place]". last admission pt presented to be bizarre and frequent falls. Pt lives alone, no primary support system/no family involvement. Past psychiatric h/o: As per previous h/o (), pt has h/o paranoia, fear that people are there to get her. h/o being on Latuda, [place], Valium. long h/o falls even in 2013. DISCHARGE NOTE I interviewed patient at bedside and during treatment team meeting to assess stability for discharge. Patient is alert and well-oriented to month, year and circumstances. Eye contact is good. Patient feels improved and denies any suicidal thoughts or thoughts to harm others. Patient indicated during tx team meeting that she never actually had any suicidal thoughts, she just wanted to get medications. Affect is calm and appropriately reactive. Patient denies hallucinations and is not responding to internal stimuli. Thought process is clear and coherent. Patient feels comfortable with discharge today and denies any new concerns. She refuses to retract her 48 hour letter despite my request during treatment team meeting. She also refused to sign treatment team plan. Denies acute discomfort or pain. Tolerating medications and denies any issues with them. Delusions and paranoia were not elicited on day of discharge. - Final Diagnosis (DSM 5) Condition upon Discharge: STABLE DSM 5: as per history bipolar disorder with psychosis versus schizoaffective disorder bipolar type Disposition: AGAINST MEDICAL ADVICE Follow-up Treatment Plan: PLEASE REFER TO SW NOTE FOR AFTERCARE PLANS I PHONED [facility] AT 11;47 AM AND AUTHORIZED THE FOLLOWING MEDICATIONS FOR 14 DAYS + 1 RF LEXAPRO 10 MG PO DAILY (patient agreed to increased during tx team meeting) KLONOPIN 0.5 MG PO DAILY PRN PATIENT INDICATED THAT SHE DID NOT WANT TO C/W [facility] BECAUSE IT WAS TOO SEDATING - Smoking Cessation Smoking Cessation Medication prescribed: No
== END 2017-12-13 15:12 | disposition left against medical advice (07) | DRG 885 ==
LOC: ED 15:48 → ERH 19:37 → PSYC 21:05
PROVIDERS: ADMIT Psychiatry & Neurology Psychiatry; ATTEND Psychiatry & Neurology Psychiatry
DX: F31.9 Bipolar disorder, unspecified (principal); R45.851 Suicidal ideations; F25.0 Schizoaffective disorder, bipolar type; Z91.14 Patient's other noncompliance with medication regimen

== ENCOUNTER 2018-01-11 12:07 | Emergency (ER) | payer MEDICAID, MEDICARE ==
[2018-01-11 12:16] VITALS: BP 130/70; PULSE 76; RESP 18; TEMP 98.6; O2SAT 100; BMI 22.2
--- NOTE | 2018-01-11 13:04 | ED PDOC ---
Arrival/HPI - General Chief Complaint: Weakness/Neurological Deficit Time Seen by Provider: 01/11/18 12:19 Historian: Patient - History of Present Illness Narrative History of Present Illness (Text): 01/11/18 13:00 67 year old female, whose past medical history includes bipolar disorder and schizophrenia, presents to the emergency department complaining of right arm and shoulder pain s/p fall 3 days ago associated with tremors and decrease appetite. Patient states she was recently discharged from [facility] yesterday with no relief. Patient was prescribed Cogentin by her psychiatrist Dr. Candelaria, but has yet to get it filled. Patient denies any change of medication. Patient denies any fever, chills, chest pain, shortness of breath, nausea, vomiting, diarrhea, urinary symptoms, back pain, neck pain, headache, dizziness, or any other complaints. Psychiatrist: Dr. Kilo Candelaria Time/Duration: Other (3 days) Symptom Onset: Sudden Symptom Course: Unchanged Activities at Onset: Rest, Emotional Upset Context: Home, Tripped Past Medical History - Provider Review Nursing Documentation Reviewed: Yes - Travel History Have you recently traveled outside [place] w/in the past 3 mons?: No - Infectious Disease Hx of Infectious Diseases: None - Tetanus Immunization Tetanus Immunization: Unknown - Cardiac Hx Cardiac Disorders: Yes - Pulmonary Hx Respiratory Disorders: No - Neurological Hx Neurological Disorder: No Hx Paralysis: No - HEENT Hx HEENT Disorder: No - Renal Hx Renal Disorder: No - Endocrine/Metabolic Hx Endocrine Disorders: No - Hematological/Oncological Hx Blood Disorders: No Hx Blood Transfusions: No - Integumentary Hx Dermatological Disorder: No Hx Basal Cell Carcinoma: No Hx Eczema: No Hx Melanoma: No Hx Psoriasis: No Hx Squamous Cell Carcinoma: No - Musculoskeletal/Rheumatological Hx Musculoskeletal Disorders: Yes (FX R HUMERUS) Hx Falls: Yes Hx Fractures: Yes Hx Unsteady Gait: Yes (cane at home) - Gastrointestinal Hx Gastrointestinal Disorders: No - Genitourinary/Gynecological Hx Genitourinary Disorders: No Hx Reproductive Disorders: No - Psychiatric Hx Bipolar Disorder: Yes Hx Depression: Yes Hx Schizophrenia: Yes Hx Substance Use: No - Past Surgical History Past Surgical History: No Previous - Surgical History Hx Appendectomy: Yes Hx Hysterectomy: Yes - Anesthesia Hx Anesthesia Reactions: No Hx Malignant Hyperthermia: No - Suicidal Assessment Feels Threatened In Home Enviroment: No Family/Social History - Physician Review Nursing Documentation Reviewed: Yes Family/Social History: No Known Family HX Smoking Status: Current Some Days Smoker Hx Alcohol Use: No Hx Substance Use: No Hx Substance Use Treatment: No Allergies/Home Meds Allergies/Adverse Reactions: Allergies No Known Allergies Allergy (Verified 12/11/17 22:15) Home Medications: Home Meds Medication Instructions Recorded Confirmed Fluoxetine HCl [Prozac] 40 mg PO DAILY 01/11/18 01/11/18 diaZEpam [Valium] 5 mg PO TID 01/11/18 01/11/18 Review of Systems - Physician Review All systems were reviewed & negative as marked: Yes - Review of Systems Constitutional: absent: Fevers, Other (Chills) Respiratory: absent: SOB Cardiovascular: absent: Chest Pain Gastrointestinal: Appetite Changes. absent: Diarrhea, Nausea, Vomiting Genitourinary Female: absent: Dysuria, Frequency, Hematuria Musculoskeletal: Other (right arm and shoulder pain). absent: Back Pain, Neck Pain Neurological: Other (tremors). absent: Headache, Dizziness Physical Exam Vital Signs Reviewed: Yes Vital Signs Temp Pulse Resp BP Pulse Ox 01/11/18 12:15 98.6 F 76 18 130/70 100 Temperature: Afebrile Blood Pressure: Normal Pulse: Regular Respiratory Rate: Normal Appearance: Positive for: Well-Appearing, Non-Toxic, Comfortable Pain Distress: None Mental Status: Positive for: Alert and Oriented X 3 - Systems Exam Head: Present: Atraumatic, Normocephalic, Abrasion (Several healed abrasions noted on right side of forehead) Pupils: Present: PERRL Extroacular Muscles: Present: EOMI Conjunctiva: Present: Normal Mouth: Present: Moist Mucous Membranes, Other (Choreiform movement of the lips) Neck: Present: Normal Range of Motion Respiratory/Chest: Present: Clear to Auscultation, Good Air Exchange. No: Respiratory Distress, Accessory Muscle Use Cardiovascular: Present: Regular Rate and Rhythm, Normal S1, S2. No: Murmurs Abdomen: No: Tenderness, Distention, Peritoneal Signs Back: Present: Normal Inspection Upper Extremity: Present: Normal Inspection. No: Cyanosis, Edema Lower Extremity: Present: Normal Inspection. No: Edema Neurological: Present: GCS=15, CN II-XII Intact, Speech Normal, Other (Tremulous) Skin: Present: Warm, Dry, Normal Color. No: Rashes Psychiatric: Present: Alert, Oriented x 3, Normal Insight, Normal Concentration Medical Decision Making ED Course and Treatment: 01/11/18 13:00 Impression: 67 year old female presents complaining of right arm and shoulder pain s/p fall 3 days ago associated with tremors and decrease appetite. Differential Diagnosis included but are not limited to: Tardive dykinesia Akathisia Essential Tremors Plan: -- Labs -- Cogentin -- Urinalysis -- Reassess and disposition Prior Visits: Notes and results from previous visits were reviewed. Patient was last seen in the emergency department on 12/11/17 presents complaining of depression and suicidal ideation. Patient was admitted Progress Notes: 01/11/18 13:46 Labs reviewed with slight anemia noted. Pending UA. 01/11/18 14:05 Patient has a documented prescription of Cogentin 1mg by her psychiatrist. I reinforced the necessity to get her prescription filled. She expresses understanding. Patient in agreement with the plan to be discharged home. Patient is stable for discharge. - Lab Interpretations I have reviewed the lab results: Yes - Scribe Statement The provider has reviewed the documentation as recorded by the Lizbetibe Reynaldo Esteban Provider Scribe Attestation: All medical record entries made by the Scribe were at my direction and personally dictated by me. I have reviewed the chart and agree that the record accurately reflects my personal performance of the history, physical exam, medical decision making, and the department course for this patient. I have also personally directed, reviewed, and agree with the discharge instructions and disposition. Disposition/Present on Arrival - Present on Arrival Any Indicators Present on Arrival: No History of DVT/PE: No History of Uncontrolled Diabetes: No Urinary Catheter: No History of Decub. Ulcer: No History Surgical Site Infection Following: None - Disposition Have Diagnosis and Disposition been Completed?: Yes Diagnosis: Tardive dyskinesia Disposition: HOME/ ROUTINE Disposition Time: 14:07 Patient Plan: Discharge Condition: IMPROVED Discharge Instructions (ExitCare): Tardive Dyskinesia Additional Instructions: PLEASE FILL YOUR PRESCRIPTION Referrals: Kilo Candelaria MD [Non-Staff] - Follow up with primary Forms: [employer] ([place])
[2018-01-11 13:33] LABS: BASO # 0.02 K/mm3 (0.0-2.0); BASO % 0.3 % (0.0-3.0); EOS # 0.1 (0.0-0.7); EOS % 1.3 % (1.5-5.0); GRAN # 3.47 (1.4-6.5); GRAN % 57.6 % (50.0-68.0); HEMOGLOBIN 10.7 g/dL (12.0-16.0); LYMPH % 32.3 % (22.0-35.0); MEAN CORPUSCULAR HEMOGLOBIN 28.7 pg (25.0-35.0); MEAN CORPUSCULAR HGB CONC 32.2 g/dl (31.0-37.0); MEAN PLATELET VOLUME 9.6 fl (7.0-11.0); MONO # 0.5 (0.1-0.6); MONO % 8.5 % (1.0-6.0); RBC 3.73 10^6/uL (3.5-6.1); RED CELL DISTRIBUTION WIDTH 13.5 % (11.5-14.5)
[2018-01-11 13:43] LABS: ALB/GLOB RATIO 1.2 (1.1-1.8); ALT/SGPT 32 U/L (7-56); AST/SGOT 31 U/L (14-36); BLOOD UREA NITROGEN 11 mg/dL (7-21); CALCIUM 9.2 mg/dL (8.4-10.5); GFR NON-AFRICAN AMERICAN > 60
[2018-01-11] MEDS ORDERED: Sodium Chloride 0.9% 1,000 ML IV STA (13:48)
== END 2018-01-11 14:14 | disposition home or self-care (01) ==
LOC: ED 12:07
DX: G24.01 Drug induced subacute dyskinesia (principal)

== ENCOUNTER 2018-01-18 13:36 | Emergency (ER) | payer MEDICARE, MEDICAID ==
[2018-01-18 13:36] VITALS: BMI 22.2
[2018-01-18 14:15] VITALS: RESP 16
[2018-01-18 14:38] VITALS: BP 122/45; PULSE 70; TEMP 97.7; O2SAT 96
--- NOTE | 2018-01-18 14:47 | ED PDOC ---
Arrival/HPI - General Chief Complaint: Trauma Time Seen by Provider: 01/18/18 14:05 Historian: Patient - History of Present Illness Narrative History of Present Illness (Text): 01/18/18 14:40 67 y/o F, with past medical history of bipolar disorder and schizophrenia, presents to the Emergency department complaining of neck pain and right shoulder pain s/p fall prior to arrival. Patient states she was ambulating between cars when she lost off balance and was unable to stop herself from falling. Patient denies any head injury but is unsure of any loss of consciousness. Patient admits to walking with a walker and informs appropriate ambulation following the incident. Patient denies any blood thinner. Patient denies any weakness or dizziness prior to the incident. Patient denies any fever, chills, nausea, vomiting, diarrhea, abdominal pain, chest pain, abdominal pain, headache, back pain, numbness/tingling or any other complaints. Time/Duration: Prior to Arrival Symptom Onset: Sudden Symptom Course: Unchanged Quality: Aching Activities at Onset: Light Context: Home Past Medical History - Provider Review Nursing Documentation Reviewed: Yes - Infectious Disease Hx of Infectious Diseases: None - Tetanus Immunization Tetanus Immunization: Unknown - Cardiac Hx Cardiac Disorders: Yes - Pulmonary Hx Respiratory Disorders: No - Neurological Hx Neurological Disorder: No Hx Paralysis: No - HEENT Hx HEENT Disorder: No - Renal Hx Renal Disorder: No - Endocrine/Metabolic Hx Endocrine Disorders: No - Hematological/Oncological Hx Blood Disorders: No Hx Blood Transfusions: No - Integumentary Hx Dermatological Disorder: No Hx Basal Cell Carcinoma: No Hx Eczema: No Hx Melanoma: No Hx Psoriasis: No Hx Squamous Cell Carcinoma: No - Musculoskeletal/Rheumatological Hx Musculoskeletal Disorders: Yes (FX R HUMERUS) Hx Falls: Yes Hx Fractures: Yes Hx Unsteady Gait: Yes (cane at home) - Gastrointestinal Hx Gastrointestinal Disorders: No - Genitourinary/Gynecological Hx Genitourinary Disorders: No Hx Reproductive Disorders: No - Psychiatric Hx Bipolar Disorder: Yes Hx Depression: Yes Hx Schizophrenia: Yes Hx Substance Use: No - Past Surgical History Past Surgical History: No Previous - Surgical History Hx Appendectomy: Yes Hx Hysterectomy: Yes - Anesthesia Hx Anesthesia: Yes Hx Anesthesia Reactions: No Hx Malignant Hyperthermia: No - Suicidal Assessment Feels Threatened In Home Enviroment: No Family/Social History - Physician Review Nursing Documentation Reviewed: Yes Family/Social History: No Known Family HX Smoking Status: Current Some Days Smoker Hx Alcohol Use: No Hx Substance Use: No Hx Substance Use Treatment: No Allergies/Home Meds Allergies/Adverse Reactions: Allergies No Known Allergies Allergy (Verified 12/11/17 22:15) Home Medications: Home Meds Medication Instructions Recorded Confirmed Fluoxetine HCl [Prozac] 40 mg PO DAILY 01/11/18 01/11/18 diaZEpam [Valium] 5 mg PO TID 01/11/18 01/11/18 Review of Systems - Physician Review All systems were reviewed & negative as marked: Yes - Review of Systems Constitutional: absent: Fevers Respiratory: absent: SOB, Cough Cardiovascular: absent: Chest Pain Gastrointestinal: absent: Abdominal Pain, Diarrhea, Nausea, Vomiting Musculoskeletal: Arthralgias (right shoulder discomfort), Neck Pain. absent: Back Pain Neurological: absent: Headache, Dizziness Physical Exam Vital Signs Reviewed: Yes Vital Signs Temp Pulse Resp BP Pulse Ox 01/18/18 14:14 97.7 F 70 16 122/45 L 96 01/18/18 13:36 98.5 F 63 18 122/71 99 Temperature: Afebrile Blood Pressure: Normal Pulse: Regular Respiratory Rate: Normal Appearance: Positive for: Non-Toxic, Comfortable, Other (Tremulous) Pain Distress: None Mental Status: Positive for: Alert and Oriented X 3 - Systems Exam Head: Present: Atraumatic, Normocephalic Pupils: Present: PERRL Extroacular Muscles: Present: EOMI Conjunctiva: Present: Normal Mouth: Present: Moist Mucous Membranes Neck: Present: Normal Range of Motion Respiratory/Chest: Present: Clear to Auscultation, Good Air Exchange. No: Respiratory Distress, Accessory Muscle Use Cardiovascular: Present: Regular Rate and Rhythm, Normal S1, S2. No: Murmurs Abdomen: No: Tenderness, Distention, Peritoneal Signs Back: Present: Normal Inspection Upper Extremity: Present: Normal Inspection, NORMAL PULSES, Other (pillp-rolling tremor noted to RUE). No: Cyanosis, Edema Lower Extremity: Present: Normal Inspection. No: Edema Neurological: Present: GCS=15, CN II-XII Intact, Speech Normal Skin: Present: Warm, Dry, Normal Color. No: Rashes Psychiatric: Present: Alert, Oriented x 3, Normal Insight, Normal Concentration, Anxious Medical Decision Making ED Course and Treatment: 01/18/18 14:37 Impression: 67 year old female presents to the ED complaining of right shoulder pain and neck pain s/p fall prior to arrival. Differential Diagnosis included but are not limited to: Fractured Shoulder Vasovagal syncope Parkinsonism Plan: -- CT of Cervical spine -- CTH -- Labs -- EKG -- XR shoulder -- Reassess and disposition Prior Visits: Notes and results from previous visits were reviewed. Progress Notes: 01/18/18 16:35 Patient noted to not be in stretcher or in the bathrooms. Attempt to call patient's name with no response. Patient deeemed to have eloped at this time. - Scribe Statement The provider has reviewed the documentation as recorded by the Scribe Kendra Trevino. Provider Scribe Attestation: All medical record entries made by the Scribe were at my direction and personally dictated by me. I have reviewed the chart and agree that the record accurately reflects my personal performance of the history, physical exam, medical decision making, and the department course for this patient. I have also personally directed, reviewed, and agree with the discharge instructions and disposition. Disposition/Present on Arrival - Present on Arrival Any Indicators Present on Arrival: No History of DVT/PE: No History of Uncontrolled Diabetes: No Urinary Catheter: No History of Decub. Ulcer: No History Surgical Site Infection Following: None - Disposition Have Diagnosis and Disposition been Completed?: Yes Diagnosis: Fall Disposition: LEFT W/O TREATMENT - ER ONLY Disposition Time: 15:50 Patient Plan: Other (Left w/o treatment) Condition: STABLE Forms: [employer] ([place])
--- NOTE | 2018-01-19 14:10 | CARD ---
APPROVED REPORT Date of service: 01/18/2018 EKG Measurement Heart [id number] <Conclusion> Normal sinus rhythm Normal ECG
== END 2018-01-18 15:15 | disposition left against medical advice (07) ==
LOC: ED 13:36
DX: M25.511 Pain in right shoulder (principal); M54.2 Cervicalgia; W19.XXXA Unspecified fall, initial encounter; F20.9 Schizophrenia, unspecified

== ENCOUNTER 2018-04-18 11:38 | Emergency (ER) | payer MEDICARE, MEDICAID ==
[2018-04-18 18:14] VITALS: BMI 24.1
--- NOTE | 2018-04-19 09:11 | CARD ---
APPROVED REPORT Date of service: 04/18/2018 EKG Measurement Heart [id number] <Conclusion> Normal sinus rhythm Normal ECG
== END 2018-04-18 18:15 | disposition home or self-care (01) ==
LOC: ED 11:38
DX: M79.601 Pain in right arm (principal)

== ENCOUNTER 2018-07-18 15:58 | Emergency (ER) | payer MEDICARE, MEDICAID ==
[2018-07-18 16:04] VITALS: TEMP 98.1
[2018-07-18 16:05] VITALS: BMI 25.4
--- NOTE | 2018-07-18 16:39 | ED PDOC ---
Arrival/HPI - General Chief Complaint: Finger,Hand,&Wrist - History of Present Illness Narrative History of Present Illness (Text): 07/18/18 16:35 68 y/o female, psychiatric history including schizophrenia, nkda, c/o lt. hand 4th digit ring stuck on the finger x 2 weeks with no fall or trauma. Pt. stated that she smashed her hand on the door about 1-2 months ago?, sustained a cut, never healed, embedded under the ring. Pt. stated that she tried to removed the ring by her self but it was unsuccessful, last tetanus under 5 years ago, aching pain, aggravated by the the movement of the ring, no numbness or tingling, no difficulty bending or extending, no fever or chills, no headache or night sweat, no other medical or psychological complaints. Past Medical History - Provider Review Nursing Documentation Reviewed: Yes - Infectious Disease Hx of Infectious Diseases: None - Tetanus Immunization Tetanus Immunization: Unknown - Cardiac Hx Cardiac Disorders: Yes - Pulmonary Hx Respiratory Disorders: No - Neurological Hx Neurological Disorder: No Hx Paralysis: No - HEENT Hx HEENT Disorder: No - Renal Hx Renal Disorder: No - Endocrine/Metabolic Hx Endocrine Disorders: No - Hematological/Oncological Hx Blood Disorders: No Hx Blood Transfusions: No - Integumentary Hx Dermatological Disorder: No Hx Basal Cell Carcinoma: No Hx Eczema: No Hx Melanoma: No Hx Psoriasis: No Hx Squamous Cell Carcinoma: No - Musculoskeletal/Rheumatological Hx Musculoskeletal Disorders: Yes (FX R HUMERUS) Hx Falls: Yes Hx Fractures: Yes Hx Unsteady Gait: Yes (cane at home) - Gastrointestinal Hx Gastrointestinal Disorders: No - Genitourinary/Gynecological Hx Genitourinary Disorders: No Hx Reproductive Disorders: No - Psychiatric Hx Psychophysiologic Disorder: Yes Hx Bipolar Disorder: Yes Hx Depression: Yes Hx Schizophrenia: Yes Hx Substance Use: No - Past Surgical History Past Surgical History: No Previous - Surgical History Hx Appendectomy: Yes Hx Hysterectomy: Yes - Anesthesia Hx Anesthesia: Yes Hx Anesthesia Reactions: No Hx Malignant Hyperthermia: No - Suicidal Assessment Feels Threatened In Home Enviroment: No Family/Social History - Physician Review Nursing Documentation Reviewed: Yes Family/Social History: Unknown Family HX Smoking Status: Current Some Days Smoker Hx Alcohol Use: No Hx Substance Use: No Hx Substance Use Treatment: No Allergies/Home Meds Allergies/Adverse Reactions: Allergies No Known Allergies Allergy (Verified 07/18/18 16:04) Home Medications: Home Meds Medication Instructions Recorded Confirmed Fluoxetine HCl [Prozac] 40 mg PO DAILY 01/11/18 01/11/18 diaZEpam [Valium] 5 mg PO TID 01/11/18 01/11/18 Review of Systems - Review of Systems Constitutional: absent: Fatigue, Fevers Eyes: absent: Vision Changes ENT: absent: Hearing Changes Respiratory: absent: SOB, Cough Cardiovascular: absent: Chest Pain Gastrointestinal: absent: Abdominal Pain, Diarrhea, Nausea, Vomiting Musculoskeletal: Arthralgias Skin: Rash. absent: Pruritis, Skin Lesions, Laceration, Abscess, Ulcer Neurological: absent: Headache Psychiatric: absent: Anxiety, Depression, Suicidal Ideation Physical Exam Vital Signs Reviewed: Yes Vital Signs Temp Pulse Resp BP Pulse Ox 07/18/18 16:04 98.1 F 86 18 124/81 97 Temperature: Afebrile Blood Pressure: Normal Pulse: Regular Respiratory Rate: Normal Appearance: Positive for: Well-Appearing, Non-Toxic, Comfortable Pain Distress: Mild Mental Status: Positive for: Alert and Oriented X 3 - Systems Exam Head: Present: Atraumatic, Normocephalic Pupils: Present: PERRL Extroacular Muscles: Present: EOMI Conjunctiva: Present: Normal Mouth: Present: Moist Mucous Membranes Neck: Present: Normal Range of Motion Respiratory/Chest: Present: Clear to Auscultation, Good Air Exchange. No: Respiratory Distress, Accessory Muscle Use Cardiovascular: Present: Regular Rate and Rhythm, Normal S1, S2. No: Murmurs Abdomen: No: Tenderness, Distention, Peritoneal Signs Back: Present: Normal Inspection Upper Extremity: Present: Normal Inspection, Other (Lt. hand: +ttp on the 4th PIPJ, 4th digit finger noted to have the ring surrounding the 4th digit PIPJ with erythematous surrouding, +yellow discharge foul smelling wound noted on the skin breaking region which covered hairs, no streaking, FROM without limitation, sensation intact, motor 5/5, +radial pulse, capillary refill< 2 seconds, neurovascular intact. ). No: Cyanosis, Edema Lower Extremity: Present: Normal Inspection. No: Edema Neurological: Present: GCS=15, CN II-XII Intact, Speech Normal Skin: Present: Warm, Dry, Normal Color. No: Rashes Psychiatric: Present: Alert, Oriented x 3, Normal Insight, Normal Concentration Medical Decision Making ED Course and Treatment: 07/18/18 16:41 -augmentin and bactrim ds. -will obtain xray after the removal PROCEDURE: Ring Removal Performed by the emergency provider Time: 16:40 Consent: Informed consent, after discussion of the risks, benefits, and alternatives to the procedure was obtained. Timeout: A timeout to verify the correct patient, procedure, and site was performed. Procedure Site: left hand 4th digit Indication: ring removal Preparation: saline bottle and electric ring cutter Procedure: I've tried the conservative methods and string method with no relief. Pt. request to cut the gold ring off as she understand that this can cause financial burden of cutting this ring which the patient stated that she doesn't care about the damage, just want me to cut off the ring. Ring is cut at 10 O'clock position which the ring removed completely, there is skin breaking and skin folding noted on the ring covering site Post-procedure: The patient tolerated the procedure well with no immediate complications -Procedure time is 30 minutes. 07/18/18 13:32 -xray: ER wet read: +fracture on the proximal middle phalanx 4th digit. -Pain improved after the ring is off the finger and given the pieces and the ring to the patient -I advised the patient to be admitted for IV antibiotic and hand/web design specialist consult which she agreed to be admitted. -Pt. request Dr. Shah to be the pmd for this case for admission, paging Dr. Shah -Labs/ekg/chest xray ordered. 07/18/18 19:14 -Wound irrigated with normal saline, clean with betadine, covered with bacitracin and gauze dressing, finger splinted applied by me with neurovascular intact. -EKG: NSR @ 85 BPM, no ST elevation or depression, no T wave inversion. -Chest xray ER wet read: no fracture or dislocation. -Labs are non significant except potassium 3.5( mildly low, potassium chloride 20meq po ordered). IV ancef ordered. -I spoke to Dr. Shah about this case, she agreed to admit to her service with Dr. Rojo and Dr. Romero to be on this case. - RAD Interpretation Radiology Orders: Chest xray: Date of service: 07/18/2018 HISTORY: admission. COMPARISON: 12/11/2017 TECHNIQUE: 1 view obtained. FINDINGS: LUNGS: No active pulmonary disease. Mild peribronchial thickening PLEURA: No significant pleural effusion identified, no pneumothorax apparent. CARDIOVASCULAR: Minimal aortic calcification Normal cardiac size. No pulmonary vascular congestion. OSSEOUS STRUCTURES: No significant abnormalities. VISUALIZED UPPER ABDOMEN: Normal. OTHER FINDINGS: None. IMPRESSION: No active disease. ====== Lt. hand xray: PROCEDURE: Left Hand and 4th digit radiographs. HISTORY: lt. hand 4th digit ring stucked x 2 weeks, skin br COMPARISON: None. TECHNIQUE: 3 views obtained. FINDINGS: BONES: There is a displaced transverse fracture through the base of the 4th middle phalanx JOINTS: Normal. No osteoarthritic changes. SOFT TISSUES: Normal. OTHER FINDINGS: None. IMPRESSION: There is a displaced transverse fracture through the base of the 4th middle phalanx Estimator Project Manager: Radiologist - PA / EPIC RADIANT ANALYST / Resident Statement MD/DO has reviewed & agrees with the documentation as recorded. Disposition/Present on Arrival - Present on Arrival Any Indicators Present on Arrival: No History of DVT/PE: No History of Uncontrolled Diabetes: No Urinary Catheter: No History of Decub. Ulcer: No History Surgical Site Infection Following: None - Disposition Have Diagnosis and Disposition been Completed?: Yes Diagnosis: Cellulitis, Finger fracture, Foreign body, Hypokalemia Disposition: HOSPITALIZED Disposition Time: 19:12 Patient Plan: Observation Condition: STABLE
[2018-07-18] MEDS ORDERED: Tmp-Smz 800 mg-160 mg DS Tab PO STA (17:19)
[2018-07-18] MEDS ORDERED: Amoxicillin-Clav 875-125 mg Tab PO STA (17:19)
[2018-07-18] MEDS ORDERED: Bacitracin 500 Units/gm Oint Foilpak UD TOP ONE (17:19)
[2018-07-18] MEDS ORDERED: ceFAZolin IV 2 gm in Dextrose 2 GM/50 ML BAG IVPB STA (18:18)
[2018-07-18 19:02] LABS: BASO # 0.02 K/mm3 (0.0-2.0); BASO % 0.4 % (0.0-3.0); EOS # 0.1 (0.0-0.7); EOS % 2.6 % (1.5-5.0); HEMOGLOBIN 11.3 g/dL (12.0-16.0); MEAN CELL VOLUME 91.8 fl (80.0-105.0); MEAN CORPUSCULAR HEMOGLOBIN 28.8 pg (25.0-35.0); MEAN CORPUSCULAR HGB CONC 31.4 g/dl (31.0-37.0); MEAN PLATELET VOLUME 10.3 fl (7.0-11.0); MONO # 0.3 (0.1-0.6); MONO % 6.5 % (1.0-6.0); RBC 3.92 10^6/uL (3.5-6.1); RED CELL DISTRIBUTION WIDTH 13.4 % (11.5-14.5); WHITE BLOOD COUNT 5.1 10^3/uL (4.5-11.0)
[2018-07-18 19:12] LABS: ALB/GLOB RATIO 1.2 (1.1-1.8); ALBUMIN 4.3 g/dL (3.0-4.8); ALT/SGPT 41 U/L (7-56); AST/SGOT 35 U/L (14-36); BLOOD UREA NITROGEN 14 mg/dL (7-21); CALCIUM 9.9 mg/dL (8.4-10.5); GFR NON-AFRICAN AMERICAN > 60
[2018-07-18] MEDS ORDERED: Potassium Chloride 20 mEq ER Tab PO STA (19:13)
[2018-07-18 19:35] VITALS: BP 151/82; PULSE 88; RESP 18; O2SAT 97
[2018-07-18] MEDS ORDERED: Vancomycin 1gm in NS 250ml 1 GM/250 ML BAG IVPB SCH (20:45)
--- NOTE | 2018-07-19 08:13 | RAD ---
PROCEDURE: Left Hand and 4th digit radiographs. HISTORY: lt. hand 4th digit ring stucked x 2 weeks, skin br COMPARISON: None. TECHNIQUE: 3 views obtained. FINDINGS: BONES: There is a displaced transverse fracture through the base of the 4th middle phalanx JOINTS: Normal. No osteoarthritic changes. SOFT TISSUES: Normal. OTHER FINDINGS: None. IMPRESSION: There is a displaced transverse fracture through the base of the 4th middle phalanx
--- NOTE | 2018-07-19 08:17 | RAD ---
Date of service: 07/18/2018 HISTORY: admission. COMPARISON: 12/11/2017 TECHNIQUE: 1 view obtained. FINDINGS: LUNGS: No active pulmonary disease. Mild peribronchial thickening PLEURA: No significant pleural effusion identified, no pneumothorax apparent. CARDIOVASCULAR: Minimal aortic calcification Normal cardiac size. No pulmonary vascular congestion. OSSEOUS STRUCTURES: No significant abnormalities. VISUALIZED UPPER ABDOMEN: Normal. OTHER FINDINGS: None. IMPRESSION: No active disease.
[2018-07-19] MEDS ORDERED: cefTRIAXone 1 gm 1 GM/100 ML BAG IVPB SCH (10:00)
--- NOTE | 2018-07-20 10:40 | CARD ---
APPROVED REPORT Date of service: 07/18/2018 EKG Measurement Heart [id number] <Conclusion> Normal sinus rhythm Prolonged QT Abnormal ECG
== END 2018-07-18 21:15 | disposition left against medical advice (07) ==
LOC: ED 15:58 → ERH 19:07 → UNDOADMOB 19:07 → ERH 21:10
DX: S62.625A Displaced fracture of middle phalanx of left ring finger, initial encounter for closed fracture (principal); W22.8XXA Striking against or struck by other objects, initial encounter; S60.455A Superficial foreign body of left ring finger, initial encounter; W49.04XA Ring or other jewelry causing external constriction, initial encounter; L03.012 Cellulitis of left finger; E87.6 Hypokalemia
CPT/HCPCS: 71045; 73140; 80053; 85025; 85651; 86140; 93005; 96374; 99285; J0690